=== PATIENT | female | born 1975 | race Two or more races ===

== ENCOUNTER 2020-05-09 09:34 | Outpatient (REF) | payer OTHER, SELFPAY | END 2020-05-09 09:35 | disposition home or self-care (01) | LOC: HO.LAB 09:34 | PROVIDERS: Visit Provider Internal Medicine | DX: Z20.828 Contact with and (suspected) exposure to other viral communicable diseases (principal) | CPT/HCPCS: C9803; U0003 ==

== ENCOUNTER 2021-07-06 08:44 | Outpatient (REF) | payer OTHER, SELFPAY | END 2021-07-06 08:45 | disposition home or self-care (01) | LOC: HO.HMGCLDS 08:44 | PROVIDERS: Visit Provider Internal Medicine | DX: Z20.822 Contact with and (suspected) exposure to COVID-19 (principal) | CPT/HCPCS: C9803; U0003; U0005 ==

== ENCOUNTER 2024-04-13 08:24 | Emergency (ER) | payer SELFPAY ==
--- NOTE | ~2024-04-13 | US_ITS ---
EXAMINATION: US BREAST, RIGHT LIMITED CLINICAL INFORMATION: Right breast swelling. History of implants placed in 2006. Details of the breast implant unknown. Prior breast imaging reportedly from 2019 is not available. COMPARISON: None available. TECHNIQUE: High-resolution curiel-scale sonography of right breast implant was performed by a technologist with a high frequency linear transducer following a standardized protocol. Brief comparison assessment of the left breast implant was also performed. Several static images and cine loop sequences were obtained and submitted for review FINDINGS: Several images of the right breast implant are submitted. The implant contour appears irregular and lobulated. Multiple low level internal echoes are seen within the implant, including large irregular band like areas of echogenicity in the 12:00 position of the implant extending to the 3 to 6:00 position. These findings are asymmetric to the contralateral left breast, which demonstrates smooth margins and no significant internal echoes. No specific periimplant fluid collections are noted. With color Doppler imaging, no hyperemia is demonstrated in the tissues surrounding the right breast implant. US/US breast RT limited IMPRESSION: 1. Abnormal appearance of the right breast implant with multiple areas of abnormal echogenicity, particularly in the 12:00 position of the right breast extending to the 3 to 6:00 position. Findings raise the suspicion of an intracapsular right breast rupture. Given the deformity of the breast implant, there is likely also an extracapsular component versus deformity related to capsular contracture. 2. No significant periimplant fluid collection appreciated. ASSESSMENT: ACR BI-RADS 3: Probably benign - short interval follow-up. RECOMMENDATIONS: 1. Close clinical correlation and follow-up is recommended. 2. Further assessment of the breast implants with breast MRI scan is recommended. 3. Also, there are no mammograms in our system and mammographic correlation is recommended. 4. Depending on the findings of the above-described additional imaging, short interval follow-up ultrasound may also be warranted. This result was discussed with Chiquis Li NP on 04/13/2024, 12:02 PM and it was ascertained that the content and urgency of this report was understood at the time of direct communication. Electronically signed by: Idania Cardenas MD 04/13/2024 12:14 PM EDT
[2024-04-13 08:28] VITALS: BP 154/81; PULSE 88; RESP 18; TEMP 37.2; O2SAT 98; BMI 26.7
--- NOTE | 2024-04-13 09:04 | ED.GENADULT ---
HPI - General Adult General Chief complaint: General Medical Stated complaint: lump in r breast pain Time Seen by Provider: 04/13/24 09:04 Source: patient Mode of arrival: ambulatory Limitations: no limitations History of Present Illness ED Provider: Guillermo SANCHEZ narrative: Patient is a 48-year-old female with history of breast implants placed in [facility] in 2005 presenting to the emergency department with complaint of right breast swelling and heaviness since yesterday. Denies tenderness of painfulness. Denies fevers. Denies any discharge from nipple. States she is in perimenopause, still gets regular periods, LMP was 03/21. Believes implants are silicone but is not entirely sure. complaint: breast swelling Onset (ago): day(s) Location: chest Associated symptoms: denies other symptoms Treatments prior to arrival: none Related Data Allergies Allergy/AdvReac Type Severity Reaction Status Date / Time Penicillins Allergy Rash Verified 04/13/24 08:32 Review of Systems Review of Systems: As per HPI. Yes all other systems are reviewed and are negative Constitutional: Constitutional: Reports as per HPI [facility] Social History Social History Advance Directives: No Advance Directives Information Provided: Yes Physical Exam ED Vital Signs: Vital Signs - 24 hr 04/13/24 08:28 04/13/24 11:08 Temperature 98.9 F 98.5 F Pulse Rate 88 67 Respiratory Rate 18 16 Blood Pressure 154/81 H 132/79 Pulse Oximetry 98 100 Oxygen Delivery Method Room Air Room Air BMI result Body Mass Index 26.7 Vital signs have been reviewed and appear to be correct. Blood pressure elevated. Heart rate normal. Respiratory rate normal. Temperature normal. Oxygen saturation normal. Const General: cooperative, healthy appearing and no acute distress Orientation/consciousness: oriented to person, oriented to place, oriented to time and patient oriented x3 Limitations: no limitations HENMT Head: Yes normocephalic and Yes atraumatic Ears: external ears normal General nose exam: Normal external nose present Face and sinus: Yes face symmetric Mouth: oropharynx normal and moist mucous membranes Throat: Yes uvula midline Eyes Pupils: Equal, round and reactive pupils present Neck Neck: Yes normal visual inspection and Yes supple Chest Other: Exam chaperoned by WHIT Nelson Breast/axilla inspection: normal inspection of the axillae and abnormal inspection of the breast right edema, normal nipple and normal areola; no erythema, no peau d'orange and no nipple discharge Breast/axilla palpation: normal palpation of the breasts, normal palpation of the axillae and no axillary lymphadenopathy Resp Effort & Inspection: normal respiratory effort and able to speak in complete sentences Auscultation: clear to auscultation bilaterally Cardio Rate: regular rate Rhythm: regular rhythm Heart sounds: S1 normal heart sound present and S2 normal heart sound present GI Palpation (GI): Soft to palpation and nontender Auscultation: normoactive bowel sounds General: Yes no CVA tenderness Back/Spine/Pelvis Back: no CVA tenderness Skin General skin exam: elasticity normal and turgor normal Neuro General: oriented to person, oriented to place, oriented to time, patient oriented x3, moves all extremities, no focal motor deficits and CN's II-XI intact bilaterally Cranial nerves: Yes Equal, round and reactive pupils present Cognition (Neuro): normal cognition Extrem General: Yes full ROM, Yes no pedal edema and Yes no calf tenderness Psych Mental Status: mental status grossly normal Affect: normal affect Thought process: Normal thought process present Medical Decision Making Medical Decision Making MDM Narrative: Patient is a 48-year-old female with history of breast implants placed in [facility] in 2005 presenting to the emergency department with complaint of right breast swelling and heaviness since yesterday. On exam patient is awake, A+Ox3, VS WNL, afebrile, normal neurological exam without focal deficits, physical exam findings as above. Given reported symptoms and physical exam findings, initial differential includes leaking or ruptured implant, less likely abscess. Ultrasound notable for abnormal appearance of right breast, implant with multiple areas of abnormal echogenicity suspicious for capsule rupture, also possible extracapsular deformity. My interpretation is in agreement with the radiologist's interpretation. Results discussed with patient. States she currently does not have a PCP, used to go to [place] but has not been there for several years. Case discussed with Dr. Crocker who states patient should follow up with [facility] [place]. Spoke with Dr. Sanya Abreu from [facility] [place] [facility] [place] who agrees that patient's implant likely needs to be removed. He advises sending referral to the office, have patient follow up outpatient. Plan discussed with patient who was in agreement. Return precautions discussed with patient including signs of infection. Patient verbalized understanding of and agreement with plan. Differential Diagnosis Differential Diagnoses: The differential diagnosis associated with the presentation includes As per MDM Consult Healthcare Provider Management of the patient was discussed with: Immigration Attorney (Dr. Crocker, general surgery; Dr. Sanya Abreu, [facility]) Independent Interpretation I performed an independent interpretation of an: Ultrasound Interpretation: Ultrasound notable for abnormal appearance of right breast, implant with multiple areas of abnormal echogenicity suspicious for capsule rupture, also possible extracapsular deformity. Radiology Impression Discussion of test interpretation with radiology: I have reviewed the radiologist's reading. Radiologist Impression: US/US breast RT limited IMPRESSION: 1. Abnormal appearance of the right breast implant with multiple areas of abnormal echogenicity, particularly in the 12:00 position of the right breast extending to the 3 to 6:00 position. Findings raise the suspicion of an intracapsular right breast rupture. Given the deformity of the breast implant, there is likely also an extracapsular component versus deformity related to capsular contracture. 2. No significant periimplant fluid collection appreciated. ASSESSMENT: ACR BI-RADS 3: Probably benign - short interval follow-up. RECOMMENDATIONS: 1. Close clinical correlation and follow-up is recommended. 2. Further assessment of the breast implants with breast MRI scan is recommended. 3. Also, there are no mammograms in our system and mammographic correlation is recommended. 4. Depending on the findings of the above-described additional imaging, short interval follow-up ultrasound may also be warranted. External Record Review External record reviewed: Inpatient record, Office record and Outpatient record Critical Care Time Critical Care Time Critical Care Time: Yes Total Critical Care Time: 42 Attestation: I have personally provided critical care time exclusive of time spent on separately billable procedures. Time includes review of lab data, radiology results, discussion with consultants, and monitoring for potential decompensation. Intervention performed as documented. Discharge Plan Discharge Clinical Impression: Swelling of breast Patient Disposition: Home, Self-Care Instructions: Breast Implant Removal (DC) Additional Instructions: You were evaluated in the emergency department today for breast swelling. Your ultrasound shows evidence that your implant possibly ruptured. It is recommended that you follow-up with the [facility] plastic surgery office as soon as possible for further evaluation and management. CALL THEIR OFFICE TO SCHEDULE AN APPOINTMENT, THEY WILL NOT CALL YOU. We recommend that you assess the area daily and return to the emergency department if you develop redness, additional swelling, fever or any other concerning symptoms. You were provided with resources for establishing care with a primary care provider in the emergency department today please attempt to do this as soon as possible. Referrals: Sanya Abreu MD [Physician] - 3 days ( US/US breast RT limited IMPRESSION: 1. Abnormal appearance of the right breast implant with multiple areas of abnormal echogenicity, particularly in the 12:00 position of the right breast extending to the 3 to 6:00 position. Findings raise the suspicion of an intracapsular right breast rupture. Given the deformity of the breast implant, there is likely also an extracapsular component versus deformity related to capsular contracture. 2. No significant periimplant fluid collection appreciated. ASSESSMENT: ACR BI-RADS 3: Probably benign - short interval follow-up. RECOMMENDATIONS: 1. Close clinical correlation and follow-up is recommended. 2. Further assessment of the breast implants with breast MRI scan is recommended. 3. Also, there are no mammograms in our system and mammographic correlation is recommended. 4. Depending on the findings of the above-described additional imaging, short interval follow-up ultrasound may also be warranted.) Print Language: Urdu
[2024-04-13 11:08] VITALS: BP 132/79; PULSE 67; RESP 16; TEMP 36.9; O2SAT 100
[2024-04-13 13:57] VITALS: BP 132/79; PULSE 67; RESP 16; TEMP 36.9; O2SAT 100
== END 2024-04-13 13:59 | disposition home or self-care (01) ==
PROVIDERS: Emergency Provider Emergency Medicine
DX: N63.10 Unspecified lump in the right breast, unspecified quadrant (principal); Z98.82 Breast implant status
CPT/HCPCS: 76642; 99283; 99284

== ENCOUNTER 2024-07-11 09:08 | Outpatient (AMB) | payer OTHER, SELFPAY ==
--- NOTE | 2024-07-11 09:10 | A.OFFPC_ITS ---
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: patient here for new patient visit Generator Technician Required: No Is last menstrual period known: Yes Last menstrual period: 06/24/24 Post menopausal: No Patient : No Allergies Penicillins Allergy (Verified 04/13/24 08:32) Rash Medication List - Last Reconciled 07/11/24 by Bin Otero MD No Known Home Meds Tobacco use date assessed: 07/11/24 Dental Screening Dental Screen Date: 07/11/24 Did you have a dental visit in the last 12 months?: Yes Did you have a dental problem in the last 6 months where you did not have access to dental care?: No Was dental information given to patient?: Patient has dentist 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 ?? Prior PCP:?Nita/Lisa Last office visit/CPE:? 4 yrs ago Acute issue(s):? Elevated BP Hematuria Headaches ?? PMHx:? R breast implant rupture. Headaches. SurgHx:?Implant replacement/repair FHx:? Mom: HLD, HTN, Migraines. Sister: Migraines. 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 Nonsmoker. EtOH None. 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 1. Little interest or pleasure in doing things: not at all 2. Feeling down, depressed, or hopeless: not at all 3. Trouble falling or staying asleep, or sleeping too much: not at all 4. Feeling tired or having little energy: not at all 5. Poor appetite or overeating: not at all 6. Feeling bad about yourself - or that you are a failure or have let yourself or your family down: not at all 7. Trouble concentrating on things, such as reading the newspaper or watching television: not at all 8. Moving or speaking so slowly that other people could have noticed. Or the opposite - being so fidgety or restless that you have been moving around a lot more than usual: not at all 9. Thoughts that you would be better off or of hurting yourself in some way: not at all Total score: 0 Depression Screening Interpretation: Negative Depression Screening Done: Yes Source: Developed by Drs. Grady Jewell, Kori Kurtz, Sanchez Carrillo and colleagues, with an educational naheed from [employer]. Thrive Questionnaire Date Thrive assessed: 07/11/24 I am a: Patient What is your living situation today?: I have a steady place to live Within the past 12 months, did the food you bought not last and you didn't have the money to get more?: Never true Within the past 12 months, did you worry whether your food would run out before you got money to buy more?: Never true Do you have trouble paying for medicines?: No Do you have trouble getting transportation to medical appointments?: No Do you have trouble paying your heating and electricity bill?: No Do you have trouble taking care of your child, family member or friend?: No Do you have trouble with day-to-day activities such as bathing, preparing meals, shopping, managing finances, etc.?: No Are you currently unemployed and looking for a job?: No Are you interested in more education?: No Please select the resources that you would like help with: None Currently or been in a relationship where the following occur: No concerns reported THRIVE Score: 0 AUDIT C Alcohol Use Questionnaire (AUDIT-C) 1. How often do you have a drink containing alcohol?: Never 2. How many drinks containing alcohol do you have on a typical day when you are drinking?: 1 or 2 3. How often do you have six or more drinks on one occasion?: Never Total Score: 0 Score Reviewed/Action Taken: Yes WENCESLAO-7 AMB Questionnaire WENCESLAO-7 Date WENCESLAO - 7 assessed: 07/11/24 Feeling nervous, anxious, or on edge: 0 = Not at all Not being able to stop or control worryin = Not at all Worrying too much about different things: 0 = Not at all Trouble relaxin = Not at all Being so restless that it is hard to sit still: 0 = Not at all Becoming easily annoyed or irritable: 0 = Not at all Feeling afraid as if something awful might happen: 0 = Not at all Total WENCESLAO-7 score (0-4 normal; 5-9 mild; 10-14 moderate; 15-21 severe): 0 Source: Developed by Drs. Grady Jewell, Kori Kurtz, Sanchez Carrillo and colleagues, with an educational naheed from [employer]. WENCESLAO-7 Assessment Billing WENCESLAO-7 Assessment Tool: WENCESLAO-7 Assessment 49982 Review of Systems Const Denies chills, Denies fatigue, Denies fever(s), Denies headache(s) and Denies weakness ENT Denies dizziness and Denies headache(s) Card Denies chest pain, Denies lightheadedness, Denies dyspnea and Denies other (Palpitations) Resp Denies cough, Denies dyspnea, Denies wheezing and Denies other ( shortness of breath) Musc Denies numbness and Denies tingling Neuro Denies dizziness, Denies headache(s), Denies numbness, Denies tingling, Denies paresthesias and Denies weakness Psych Denies anxiety and Denies depression Endo Denies fatigue Aller/Immun Denies wheezing Physical exam (Primary Care) Vital Signs: Last Vital Signs Temp 98.1 F 07/11/24 09:46 Pulse 76 07/11/24 09:46 Resp 16 07/11/24 09:46 BP 139/63 07/11/24 09:46 Pulse Ox 100 07/11/24 09:46 Oxygen Delivery Method Room Air 07/11/24 09:46 BMI result Body Mass Index 28.0 Tobacco/Smoking Status: Tobacco use Status Tobacco use date assessed 07/11/24 07/11/24 09:50 Patient Tobacco Use Status Never used Tobacco 07/11/24 09:50 e-Cigarette/Vaping Use Never Used 07/11/24 09:50 PHQ-9: PHQ-9 Score PHQ-9: Total score 0 07/11/24 09:50 Depression Screening Interpretation: Negative Thrive Assessment: Date of Thrive Assessment Date Thrive assessed 07/11/24 07/11/24 09:50 Currently or been in a relationship where the following occur: No concerns reported Const General: no acute distress and well developed Nutritional Appearance: well nourished Orientation/consciousness: patient oriented x3 HENMT Head: Yes normocephalic and Yes atraumatic Eyes General: appearance normal, both eyes and all related structures Pupils: Equal, round and reactive pupils present EOM: EOMs intact bilaterally Resp Effort & Inspection: normal respiratory effort Auscultation: clear to auscultation bilaterally Cardio Rate: regular rate Rhythm: regular rhythm Heart sounds: S1 normal heart sound present, S2 normal heart sound present, no gallops, no murmurs and no rubs Neuro General: patient oriented x3 and gait normal Cranial nerves: Yes Equal, round and reactive pupils present Psych Affect: normal affect Coding Level of Care Code New Pt Level 3 (29302) Diagnoses History of right breast implant Z98.82 Elevated blood pressure reading without diagnosis of hypertension R03.0 Hematuria R31.9 Headache R51.9 Laboratory exam ordered as part of routine general medical examination Z00.00 Additional Codes WENCESLAO-7 Assessment Billing - WENCESLAO-7 Assessment Tool: WENCESLAO-7 Assessment 24153 ([id number]) Assessment & Plan Assessment & Plan (1) History of right breast implant: Code(s): Z98.82 - Breast implant status Category: Surgical Plan: History?of?breast?implants?with?right?breast?implant?rupture?and?repair. Minimal?swelling?or?discomfort.??No?fevers?or?chills. 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 (2) Elevated blood pressure reading without diagnosis of hypertension: Code(s): R03.0 - Elevated blood-pressure reading, without diagnosis of hypertension Category: Medical Plan: Patient?notes?blood?pressures?have?been?elevated?recently. Blood?pressure?today?and?at?prior?measurement?are?in?prehypertensive?range. Advised?diet?low?in?salt/sodium Advised?exercise?and?good?sleep. (3) Hematuria: Code(s): R31.9 - Hematuria, unspecified Category: Medical Plan: Patient?notes?that?she?has?been?told?she?has?had?microscopic?hematuria No?gross?blood She?also?notes?that?her?mom?has?had?this?condition?as?well Will?check?urinalysis?we?can?discuss?further?workup?at?next?visit (4) Headache: Code(s): R51.9 - Headache, unspecified Category: Medical Plan: Patient?gets?occasional?headaches?and?use?Tylenol?which?is?effective. Can?continue?current?strategy (5) Laboratory exam ordered as part of routine general medical examination: Code(s): Z00.00 - Encounter for general adult medical examination without abnormal findings Category: Medical Plan: Check?labs Orders: Orders Lipid Panel Today Z00.00 - Encounter for general adult medical examination without abnormal findings Microalbumin, Random (w Creat) Today I10 - Essential (primary) hypertension TSH reflex Free T4 Today Z00.00 - Encounter for general adult medical examination without abnormal findings Complete Blood Count Auto Diff Today Z00.00 - Encounter for general adult medical examination without abnormal findings Comprehensive Gypsum. Panel Fast Today Z00.00 - Encounter for general adult medical examination without abnormal findings UA and rflx microscopic Today Z00.00 - Encounter for general adult medical examination without abnormal findings
[2024-07-11 09:46] VITALS: BP 139/63; PULSE 76; RESP 16; TEMP 36.7; O2SAT 100; BMI 28.0
== END 2024-07-11 10:17 | disposition home or self-care (01) ==
PROVIDERS: PCP Family Medicine; Visit Provider Family Medicine
DX: Z98.82 Breast implant status (principal); R03.0 Elevated blood-pressure reading, without diagnosis of hypertension; R31.9 Hematuria, unspecified; R51.9 Headache, unspecified; Z00.00 Encounter for general adult medical examination without abnormal findings

== ENCOUNTER → 2024-07-11 09:08 | Outpatient (BNVA) | payer OTHER, SELFPAY | PROVIDERS: Visit Provider Family Medicine | DX: Z00.00 Encounter for general adult medical examination without abnormal findings (principal); R51.9 Headache, unspecified; R31.9 Hematuria, unspecified; R03.0 Elevated blood-pressure reading, without diagnosis of hypertension; Z98.82 Breast implant status | CPT/HCPCS: 96127; 99202 ==

== ENCOUNTER → 2024-07-31 11:49 | Outpatient (BNVA) | payer OTHER, SELFPAY | PROVIDERS: PCP Family Medicine; Visit Provider Family Medicine | DX: Z00.00 Encounter for general adult medical examination without abnormal findings (principal); I10 Essential (primary) hypertension; R31.29 Other microscopic hematuria; Z12.4 Encounter for screening for malignant neoplasm of cervix | CPT/HCPCS: 99212; 99396 ==

== ENCOUNTER 2024-10-21 14:06 | Outpatient (REF) | payer OTHER, SELFPAY ==
[2024-10-21 16:07] LABS: Anion Gap 13 (12-20); Blood Urea Nitrogen 14 mg/dL (9-16); Carbon Dioxide 29 mmol/L (22-29); Chloride 102 mmol/L (96-108); Estimated Glomerular Filt Rate > 60; Glucose Random 84 mg/dL (60-115); Potassium 4.3 mmol/L (3.3-5.1); Sodium 140 mmol/L (135-145)
[2024-10-21 16:09] LABS: Appearance Urine Clear; Color Urine Yellow; Glucose Urine UA Negative (Negative); Leukocyte Esterase Urine Negative (Negative); Nitrite Urine Negative (Negative); Specific Gravity - Urine <= 1.005 (1.005-1.025); UMIC TRIGGER UA YES; Urine Blood Small (1+) (Negative); Urine Ketones Negative (Negative); Urine Protein Negative (Neg-Trace)
[2024-10-21 16:20] LABS: Bacteria Urine None Seen (None Seen); Hyaline Casts Urine 0-2 /LPF (0-2); Squamous Epithelial Cell Urine 0-2 /HPF (0-2); WBC Urine 0-5 /HPF (0-5)
[2024-10-21 16:41] LABS: Erythrocyte Sedimentation Rate 12 MM/HR (0-20)
[2024-10-21 17:37] LABS: Creatinine Urine 16.72 mg/dL; Microalbumin Urine < 5.0 mg/L
[2024-10-22 05:18] LABS: CRP High Sensitivity 0.7 mg/L
[2024-10-23 11:54] LABS: Anti Nuclear Antibody Screen NEGATIVE (NEGATIVE)
== END 2024-10-21 14:07 | disposition home or self-care (01) ==
LOC: HO.HMGCLDS 14:06
PROVIDERS: PCP Family Medicine; Visit Provider Family Medicine
DX: Z00.00 Encounter for general adult medical examination without abnormal findings (principal); R31.9 Hematuria, unspecified; I10 Essential (primary) hypertension
CPT/HCPCS: 36415; 80048; 81001; 82043; 82570; 85652; 86038; 86141

== ENCOUNTER 2024-10-22 08:50 | Outpatient (AMB) | payer OTHER, SELFPAY ==
--- NOTE | 2024-10-22 08:53 | MHC.PC.OV ---
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 Recent labs show inflammatory markers are fine. ELIEL screen still pending. Urine studies show some hematuria which has improved from prior. Has complaints of muscle cramps. Complaints of back pain. She takes ibuprofen for relief when pain gets unbearable. 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 HPI Comments History of Present Illness Details Documentation assistance for Bin Otero MD, was provided by Sunday Harris,? Torch Operator on 10/22/2024 at 9:31 AM EST. I, Dr. Otero, have read, observed, and verified documentation. ? 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 Current occupational exposures/hazards: No Cognitive needs: No Hearing needs: No Vision needs: No Questionnaire Thrive Questionnaire Date Thrive assessed: 07/08/24 I am a: Patient What is your living situation today?: I have a steady place to live Within the past 12 months, did the food you bought not last and you didn't have the money to get more?: Never true Within the past 12 months, did you worry whether your food would run out before you got money to buy more?: Never true Do you have trouble paying for medicines?: No Do you have trouble getting transportation to medical appointments?: No Do you have trouble paying your heating and electricity bill?: No Do you have trouble taking care of your child, family member or friend?: No Do you have trouble with day-to-day activities such as bathing, preparing meals, shopping, managing finances, etc.?: No Are you currently unemployed and looking for a job?: No Are you interested in more education?: No Please select the resources that you would like help with: None Currently or been in a relationship where the following occur: No concerns reported THRIVE Score: 0 WENCESLAO-7 AMB Questionnaire WENCESLAO-7 Date WENCESLAO - 7 assessed: 07/11/24 Source: Developed by Drs. Grady Jewell, Kori Kurtz, Sanchez Carrillo and colleagues, with an educational naheed from [employer]. Review of Systems Const Denies chills, Denies fatigue, Denies fever(s), Denies headache(s) and Denies weakness ENT Denies dizziness and Denies headache(s) Card Denies dyspnea Resp Denies cough, Denies dyspnea, Denies wheezing and Denies other (shortness of breath) Musc Reports back pain, Denies numbness and Denies tingling Neuro Denies dizziness, Denies headache(s), Denies numbness, Denies tingling and Denies weakness Psych Denies anxiety and Denies depression Endo Denies fatigue Aller/Immun Denies wheezing Physical exam (Primary Care) Vital Signs: Last Vital Signs Temp 98.2 F 10/22/24 09:02 Pulse 77 10/22/24 09:02 Resp 14 10/22/24 09:02 BP 110/70 10/22/24 09:02 Pulse Ox 99 10/22/24 09:02 Oxygen Delivery Method Room Air 10/22/24 09:02 BMI result Body Mass Index 28.5 Tobacco/Smoking Status: Tobacco use Status Tobacco use date assessed 07/11/24 10/22/24 08:55 Patient Tobacco Use Status Never used Tobacco 10/22/24 08:55 e-Cigarette/Vaping Use Never Used 10/22/24 08:55 Thrive Assessment: Date of Thrive Assessment Date Thrive assessed 07/08/24 10/22/24 08:55 Currently or been in a relationship where the following occur: No concerns reported Const General: well developed; No acute distress Nutritional Appearance: well nourished Orientation/consciousness: patient oriented x3 HENMT Head: Yes normocephalic and Yes atraumatic Eyes General: appearance normal, both eyes and all related structures Pupils: Equal, round and reactive pupils present EOM: EOMs intact bilaterally Resp Effort & Inspection: normal respiratory effort Neuro General: patient oriented x3 and gait normal Cranial nerves: Yes Equal, round and reactive pupils present Psych Affect: normal affect Coding Level of Care Code Est Pt Level 4 (38977) Diagnoses Back pain M54.9 Hematuria R31.9 Muscle cramps R25.2 Assessment & Plan Assessment & Plan (1) Back pain: Code(s): M54.9 - Dorsalgia, unspecified Category: Medical Plan: Mid?and?low?back?pain?in?patient?who?drives?for?a?living. Surface?therapy Use?Tylenol?topicals (2) Hematuria: Code(s): R31.9 - Hematuria, unspecified Category: Medical Plan: Ongoing?hematuria Renal?function?appears?okay Possible?renal?stones. Possible?polyps?or neoplasm less likely. Will?repeat and check?urine?microscopy,?cytology. May refer to urology (3) Muscle cramps: Code(s): R25.2 - Cramp and spasm Category: Medical Plan: Encouraged?good?hydration,?gentle?stretching?and?she?magnesium?at?night Orders: Orders Urine Cytology 10/22/24 R31.9 - Hematuria, unspecified UA w Microscopic 10/22/24 R31.9 - Hematuria, unspecified PT Evaluation and Treatment 10/22/24 M54.9 - Dorsalgia, unspecified Referrals Urology Referral R31.9 - Hematuria, unspecified
[2024-10-22 09:02] VITALS: BP 110/70; PULSE 77; RESP 14; TEMP 36.8; O2SAT 99; BMI 28.5
== END 2024-10-22 09:32 | disposition home or self-care (01) ==
LOC: HO.HMCFM 08:51
PROVIDERS: PCP Family Medicine; Visit Provider Family Medicine
DX: M54.9 Dorsalgia, unspecified (principal); R31.9 Hematuria, unspecified; R25.2 Cramp and spasm

== ENCOUNTER → 2024-10-22 08:50 | Outpatient (BNVA) | payer OTHER, SELFPAY | PROVIDERS: PCP Family Medicine; Visit Provider Family Medicine | DX: Z13.89 Encounter for screening for other disorder (principal) | CPT/HCPCS: 99212 ==

== ENCOUNTER 2024-10-22 09:43 | Outpatient (REF) | payer OTHER, SELFPAY ==
[2024-10-22 11:18] LABS: Urine Cytology See Pathology rpt
[2024-10-22 11:36] LABS: Appearance Urine Clear; Color Urine Yellow; Glucose Urine UA Negative (Negative); Leukocyte Esterase Urine Negative (Negative); Nitrite Urine Negative (Negative); UMIC TRIGGER UA YES; Urine Blood Small (1+) (Negative); Urine Ketones Negative (Negative); Urine Protein Negative (Neg-Trace)
[2024-10-22 11:40] LABS: Bacteria Urine None Seen (None Seen); Hyaline Casts Urine 0-2 /LPF (0-2); RBC Urine >20 /HPF (0-2); Squamous Epithelial Cell Urine 0-2 /HPF (0-2); WBC Urine 0-5 /HPF (0-5)
== END 2024-10-22 09:44 | disposition home or self-care (01) ==
LOC: HO.WFDLDS 09:43
PROVIDERS: Visit Provider Family Medicine
DX: R31.9 Hematuria, unspecified (principal)
CPT/HCPCS: 81001; 88112

== ENCOUNTER 2024-11-07 10:44 | Outpatient (REF) | payer OTHER, SELFPAY ==
[2024-11-07 18:16] LABS: Bacterial Vaginosis PCR NEGATIVE (Negative); Candida Group PCR NOT DETECTED (Not Detect); Candida glab krusei PCR NOT DETECTED (Not Detect); Trichomonas vaginalis PCR NOT DETECTED (Not Detect)
[2024-11-08 13:25] LABS: CT PCR NOT DETECTED (Not Detect.); NG PCR NOT DETECTED (Not Detect.)
[2024-11-13 12:01] LABS: HPV Genotype 16 Negative (Negative); HPV Genotype 18 Negative (Negative); HPV High Risk Negative (Negative)
== END 2024-11-07 10:45 | disposition home or self-care (01) ==
LOC: HO.LNP 10:44
PROVIDERS: PCP Family Medicine; Visit Provider Advanced Practice Midwife
DX: Z01.419 Encounter for gynecological examination (general) (routine) without abnormal findings (principal); N95.1 Menopausal and female climacteric states; Z11.3 Encounter for screening for infections with a predominantly sexual mode of transmission; Z98.82 Breast implant status; Z98.51 Tubal ligation status
CPT/HCPCS: 81515; 87491; 87591; 87626; 88175; 99386; 99459

== ENCOUNTER 2024-11-07 10:44 | Outpatient (AMB) | payer OTHER, SELFPAY ==
[2024-11-07 10:45] VITALS: BP 112/68; PULSE 72; O2SAT 98; BMI 28.3
--- NOTE | 2024-11-07 10:45 | A.OFFVIS_ITS ---
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 She says she is in good health since then. 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 She has been getting hot flashes for while she is 49 years old. She is seeing Dr. Otero now for primary care. She had breast implants and abdominal plasty done in 1999 6 in [place] and last year she felt her right breast rupture and was getting more swollen and sore and so she returned to [place] for revision placement the surgery was done in April she also was found to be anemic when she went there so she needed an iron transfusion 1st before surgery and then also she needed to return for surgery because there were deposits where the silicone had leaked. She had an appointment for mammogram recently but she asked them not to do the mammogram because of her recent surgery in being still little sore after so they did an ultrasound she is not sure when her mammogram will be done at this point. 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 Current occupational exposures/hazards: No Cognitive needs: No Hearing needs: No Vision needs: No Female Reproductive History Menstrual Age of Menarche: 11 Duration of menses: <3 days Date of last menstrual period: 10/25/24 control method: permanent sterilization Total pregnancies: 3 Number of Living Children: 2 Ectopics: 1 History of abnormal pap smear: No History of STI: Yes (chlamydia 1991) Physical Exam Vital Signs: Last Vital Signs Pulse 72 11/07/24 10:45 BP 112/68 11/07/24 10:45 Pulse Ox 98 11/07/24 10:45 Oxygen Delivery Method Room Air 11/07/24 10:45 BMI result Body Mass Index 28.3 Const General: healthy appearing, comfortable, no acute distress, well developed and alert Nutritional Appearance: average body habitus Orientation/consciousness: patient oriented x3 Limitations: no limitations HEENT Head: Yes normocephalic Neck Neck: Yes normal visual inspection Chest Other: Patient is status post revision of breast implants with scars evident and healing from April. (also history of abdominal plasty 2005) Chest palpation & inspection: normal inspection of the chest Breast/axilla inspection: normal inspection of the breasts and normal inspection of the axillae Breast/axilla palpation: normal palpation of the breasts and normal palpation of the axillae Resp Effort & Inspection: normal respiratory effort GI Inspection: Yes normal to inspection, No Abdominal wall edema and No distended Palpation (GI): Soft to palpation and nontender Other: Normal external exam some thinning of the vaginal mucosa vagina pink and moist cervix pink and moist healthy appearing scant mucus uterus midposition mobile nontender adnexa nontender fair muscle tone with Kegel. General: Yes bladder normal to palpation External Female Exam: normal external appearance and normal appearance of the urethra Speculum Exam - Vagina: normal appearance of the vagina, normal palpation and normal vaginal discharge Speculum Exam - Cervix: normal appearance of the cervix, normal palpation and nontender Bimanual exam- vagina & uterus: normal bimanual exam, normal palpation, uterine size normal, bladder normal to palpation, consistency normal, normal palpation, uterine mobility normal, uterine shape normal, No Cervical tenderness present, non-tender and no cervical motion tenderness Bimanual Exam- Adnexa, other: normal adnexae, no masses, normal and No adnexal tenderness Neuro General: patient oriented x3 Assessment & Plan Assessment & Plan (1) Hx of breast implants, bilateral: Comment: Traveled to [place] for revision of the breast implants secondary to be right 1 had ruptured. She said there was some leaking of the silicone. I asked that she bring the medical records/operative to her primary care provider for review. Code(s): Z98.82 - Breast implant status Category: Surgical (2) Screening for cervical cancer: Code(s): Z12.4 - Encounter for screening for malignant neoplasm of cervix Category: Medical (3) Well woman exam with routine gynecological exam: Code(s): Z01.419 - Encounter for gynecological examination (general) (routine) without abnormal findings Category: Medical (4) Perimenopause: Code(s): N95.1 - Menopausal and female climacteric states Category: Medical (5) Encounter for screening examination for sexually transmitted disease: Code(s): Z11.3 - Encounter for screening for infections with a predominantly sexual mode of transmission Category: Medical Plan -----Discussed in this visit the following: healthy balanced diet, regular and consistent exercise, getting recommended health screens, doing the best she can for her particular health concerns, kegel exercises, pap smear screening and followup recommendations, mammography screening and SBE, normal changes in cycles in her life stage--- . Reviewed her recent history of the the breast surgery breast implant revision. She told me that she does have the records of the surgery and I ask that she bring them to her next primary care visits so they can be put in her records just in case there is any issue with future concerns about the leaking of the silicone that she had additionally she still needs to schedule a mammogram and the timing would be for discussion with her primary. She does not have any other health concerns I did discuss other raheem menopausal symptoms that she is not experiencing yet but discussed in anticipation of future. Testing done during visit for the Pap smear as well as gonorrhea chlamydia trichomoniasis bacterial vaginosis and yeast. She reminded me of how upset she had been when she had chlamydia in the 90s, she is not concerned today, and d eclined blood work for STIs. Orders: Orders Bacterial Vaginosis Panel Today Z00.00 - Encounter for general adult medical examination without abnormal findings CT NG by PCR Today Z00.00 - Encounter for general adult medical examination without abnormal findings Pap Smear Today Z00.00 - Encounter for general adult medical examination without abnormal findings Coding Level of Care Code New Pt Prev Care 40-64y(22064) Diagnoses Hx of breast implants, bilateral Z98.82 Screening for cervical cancer Z12.4 Well woman exam with routine gynecological exam Z01.419 Perimenopause N95.1 Encounter for screening examination for sexually transmitted disease Z11.3
== END 2024-11-07 11:46 | disposition home or self-care (01) ==
LOC: HO.HWSM 10:44
PROVIDERS: PCP Family Medicine; Visit Provider Advanced Practice Midwife
DX: Z01.419 Encounter for gynecological examination (general) (routine) without abnormal findings (principal); N95.1 Menopausal and female climacteric states; Z98.82 Breast implant status
CPT/HCPCS: 99386; 99459

== ENCOUNTER 2024-12-23 09:37 | Outpatient (AMB) | payer OTHER, SELFPAY ==
--- NOTE | 2024-12-23 09:50 | MHC.PC.OV ---
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 Mid and low back pain. 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 Pt had ongoing hematuria. Had referred her to urology. She notes she has an upcoming appt. Has been going to physical therapy. She had noted pain has been the same. Does not take any meds for pain. HPI Comments History of Present Illness Details Documentation assistance for Bin Otero MD, was provided by Sunday Harris,? Title I Math Tutor on 12/23/2024 at 9:57 AM EST. I, Dr. Otero, have read, observed, and verified documentation. ? PFSH Medical History Laboratory exam ordered as part of routine general medical examination Adult general medical exam Screening for colon cancer Breast cancer screening by mammogram Screening for cervical cancer Well woman exam with routine gynecological exam Encounter for screening examination for sexually transmitted disease Anxiety STD (female) Asthma Surgical History History of right breast implant Hx of breast implants, bilateral H/O tubal ligation History of abdominoplasty Family History Mother High blood pressure High cholesterol Social History Housing: House Patient Tobacco Use Status: Never used Tobacco e-Cigarette/Vaping Use: Never Used Second Hand Smoke Exposure: No service: No Current occupational status: employed 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 Current occupational exposures/hazards: No Cognitive needs: No Hearing needs: No Vision needs: No Female Reproductive History Menstrual Age of Menarche: 11 Questionnaire Thrive Questionnaire Date Thrive assessed: 07/08/24 I am a: Patient What is your living situation today?: I have a steady place to live Within the past 12 months, did the food you bought not last and you didn't have the money to get more?: Never true Within the past 12 months, did you worry whether your food would run out before you got money to buy more?: Never true Do you have trouble paying for medicines?: No Do you have trouble getting transportation to medical appointments?: No Do you have trouble paying your heating and electricity bill?: No Do you have trouble taking care of your child, family member or friend?: No Do you have trouble with day-to-day activities such as bathing, preparing meals, shopping, managing finances, etc.?: No Are you currently unemployed and looking for a job?: No Are you interested in more education?: No Please select the resources that you would like help with: None Currently or been in a relationship where the following occur: No concerns reported THRIVE Score: 0 WENCESLAO-7 AMB Questionnaire WENCESLAO-7 Date WENCESLAO - 7 assessed: 07/11/24 Source: Developed by Drs. Grady Jewell, Kori Kurtz, Sanchez Carrillo and colleagues, with an educational naheed from [employer]. Review of Systems Const Denies chills, Denies fatigue, Denies fever(s), Denies headache(s) and Denies weakness ENT Denies dizziness and Denies headache(s) Card Denies dyspnea Resp Denies cough, Denies dyspnea, Denies wheezing and Denies other (shortness of breath) Musc Denies numbness and Denies tingling Neuro Denies dizziness, Denies headache(s), Denies numbness, Denies tingling and Denies weakness Psych Denies anxiety and Denies depression Endo Denies fatigue Aller/Immun Denies wheezing Physical exam (Primary Care) Vital Signs: Last Vital Signs Temp 97.9 F 12/23/24 09:52 Pulse 61 12/23/24 09:52 Resp 14 12/23/24 09:52 BP 124/70 12/23/24 09:52 Pulse Ox 99 12/23/24 09:52 Oxygen Delivery Method Room Air 12/23/24 09:52 BMI result Body Mass Index 27.5 Tobacco/Smoking Status: Tobacco use Status Tobacco use date assessed 07/11/24 12/23/24 09:55 Patient Tobacco Use Status Never used Tobacco 12/23/24 09:55 e-Cigarette/Vaping Use Never Used 12/23/24 09:55 Thrive Assessment: Date of Thrive Assessment Date Thrive assessed 07/08/24 12/23/24 09:55 Currently or been in a relationship where the following occur: No concerns reported Const General: well developed; No acute distress Nutritional Appearance: well nourished Orientation/consciousness: patient oriented x3 HENMT Head: Yes normocephalic and Yes atraumatic Eyes General: appearance normal, both eyes and all related structures Pupils: Equal, round and reactive pupils present EOM: EOMs intact bilaterally Resp Effort & Inspection: normal respiratory effort Neuro General: patient oriented x3 and gait normal Cranial nerves: Yes Equal, round and reactive pupils present Psych Affect: normal affect Coding Level of Care Code Est Pt Level 4 (48648) Diagnoses Back pain M54.9 Hematuria R31.9 Muscle cramps R25.2 Assessment & Plan Assessment & Plan (1) Back pain: Code(s): M54.9 - Dorsalgia, unspecified Category: Medical Plan: Ongoing?low?back?pain?radiating?to?buttocks?and?leg She?has?undergone?physical?therapy?and?still?has?additional?visits?but?has?not?had?significant?improvement She?can?use?ibuprofen?sparingly I?will?refer?her?to?physiatry Checking?x-ray (2) Hematuria: Code(s): R31.9 - Hematuria, unspecified Category: Medical Plan: Ongoing?hematuria Cytology?unremarkable Referred?to?urology (3) Muscle cramps: Code(s): R25.2 - Cramp and spasm Category: Medical Plan: Muscle?cramps?have?resolved.??Had?advised?patient?to?increase?hydration?and?try?magnesium She?will?me?know?if?this?returns Orders: Orders XR lumbar spine 2-3V 12/23/24 M54.9 - Dorsalgia, unspecified Referrals Physiatry Referral M54.9 - Dorsalgia, unspecified
[2024-12-23 09:52] VITALS: BP 124/70; PULSE 61; RESP 14; TEMP 36.6; O2SAT 99; BMI 27.5
== END 2024-12-23 10:15 | disposition home or self-care (01) ==
LOC: HO.HMCFM 09:38
PROVIDERS: PCP Family Medicine; Visit Provider Family Medicine
DX: M54.9 Dorsalgia, unspecified (principal); R31.9 Hematuria, unspecified; R25.2 Cramp and spasm

== ENCOUNTER 2024-12-23 09:37 | Outpatient (REF) | payer OTHER, SELFPAY ==
--- NOTE | ~2024-12-23 | XR_ITS ---
EXAMINATION: XR LUMBOSACRAL SPINE CLINICAL INFORMATION: M54.9 - Dorsalgia, unspecified COMPARISON: None available. TECHNIQUE: AP and lateral views. FINDINGS: Levoconvex curvature of the lower lumbar spine. Facet joint hypertrophy at L4-5 and L5-S1. No acute cortical disruption or gross malalignment. No lytic or blastic lesions. XR/XR lumbar spine 2-3V IMPRESSION: Spondylosis L4-5 and L5-S1. Mild levoconvex scoliosis. Electronically signed by: Roc Montana MD 12/23/2024 01:00 PM EDT
== END 2024-12-23 09:38 | disposition home or self-care (01) ==
LOC: HO.XRAY 09:37
PROVIDERS: PCP Family Medicine; Visit Provider Family Medicine
DX: M54.9 Dorsalgia, unspecified (principal); R31.9 Hematuria, unspecified; R25.2 Cramp and spasm
CPT/HCPCS: 72100; 99212

== ENCOUNTER → 2024-12-23 10:48 | Outpatient (BNV) | payer OTHER, SELFPAY | PROVIDERS: PCP Family Medicine; Visit Provider Radiology Diagnostic Radiology | DX: M47.817 Spondylosis without myelopathy or radiculopathy, lumbosacral region (principal) | CPT/HCPCS: 72100 ==

== ENCOUNTER 2024-12-24 08:56 | Outpatient (AMB) | payer OTHER, SELFPAY ==
[2024-12-24 09:00] VITALS: BP 124/78; PULSE 72; O2SAT 96; BMI 27.5
--- NOTE | 2024-12-24 09:00 | A.OFFVIS_ITS ---
Vital Signs 3 12/24/24 09:00 Height 5 ft 5 in Weight 165 lb BMI 27.5 BP 124/78 Blood Pressure Location Rt brachial Position Sitting Pulse 72 Pulse Source Pulse Oximeter Pulse Oximetry (%) 96 Oxygen Delivery Method Room Air Intake Visit Reasons: Colonoscopy Screening Intake Note: New pt for initial colo screening. CC; Pt denies any GI sx or concerns at this time. No pertinent FMHx. Mercerizing Range Feeder Required: No Accompanied by: Self / Same As Patient Allergies Penicillins Allergy (Verified 12/24/24 09:01) Rash HPI HPI Colonoscopy Screening: Details: 49-year-old female here for preprocedural meeting to discuss a screening colonoscopy. She is referred by Bin Otero. PMX Asthma Elevated blood pressure reading Headache Back pain * SURGICAL HISTORY BREAST IMPLANTS BILATERAL TUBAL LIGATION ABDOMINOPLASTY * ALLERGIES Penicillin * [place] LABS: Laboratory Tests 07/20/24 10/21/24 08:24 14:11 WBC 3.7 L Hgb 12.3 Hct 37.5 Plt Count 261 Estimated GFR > 60 Total Bilirubin 0.5 AST 20 ALT 19 Alkaline Phosphatase 62 TSH 0.85 TODAY'S VISIT This is her first colonoscopy. No bowel or upper GI problems No cardiac problems and she only had asthma when . No prior problems with anesthesia or sedation. NO ID problems. There is no known FHX of crc or polyps. [facility] Medical History Laboratory exam ordered as part of routine general medical examination Adult general medical exam Screening for colon cancer Breast cancer screening by mammogram Screening for cervical cancer Well woman exam with routine gynecological exam Encounter for screening examination for sexually transmitted disease Anxiety STD (female) Asthma Surgical History History of right breast implant Hx of breast implants, bilateral H/O tubal ligation History of abdominoplasty Family History Mother High blood pressure High cholesterol Social History Housing: House Patient Tobacco Use Status: Never used Tobacco e-Cigarette/Vaping Use: Never Used Second Hand Smoke Exposure: No service: No Current occupational status: employed 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 Current occupational exposures/hazards: No Cognitive needs: No Hearing needs: No Vision needs: No Female Reproductive History Menstrual Age of Menarche: 11 Review of Systems Const Denies fatigue, Denies fever(s), Denies night sweats, Denies poor appetite and Denies weight loss Eyes Reports requires corrective lenses ENT Reports Normal hearing present, Denies dental pain, Denies dysphagia, Denies hearing loss, Denies mouth pain, Denies odynophagia, Denies throat swelling, Denies tongue swelling and Reports other (Dentition adequate) GI Details: Denies abdominal pain, Denies melena, Denies bloating, Denies hematochezia, Denies constipation, Denies GI cramping, Denies dysphagia, Denies excessive flatus, Denies early satiety, Denies heartburn, Denies diarrhea, Denies nausea, Denies odynophagia, Denies vomiting and Denies hematemesis Skin/Breast Denies pruritus, Denies lesions, Denies rash and Denies jaundice Neuro Reports Normal hearing present and Denies Abnormal speech present Endo Denies fatigue Aller/Immun Denies throat swelling and Denies tongue swelling Physical Exam Vital Signs: BMI result Body Mass Index 27.5 Const General: cooperative, no acute distress, well developed and well groomed Nutritional Appearance: well nourished, obese and overweight Orientation/consciousness: oriented to person, oriented to place and oriented to time Limitations: No language barrier, ambulation with cane, ambulation with walker and wheelchair HEENT Head: Yes normocephalic and Yes atraumatic Eyes General: appearance normal, both eyes and all related structures Pupils: Equal, round and reactive pupils present Neck Neck: Yes normal visual inspection and Yes no lymphadenopathy Thyroid: Thyroid normal Resp Effort & Inspection: normal respiratory effort and able to speak in complete sentences Auscultation: clear to auscultation bilaterally Cardio Rate: regular rate Rhythm: regular rhythm Heart sounds: Normal, physiologic split S2 sound present Peripheral pulses: radial pulses present and posterior tibial pulses present GI Inspection: No distended, No Abdominal panniculus present, Yes scar and Yes striae Palpation (GI): Soft to palpation, nontender, no guarding, not rigid and No hepatosplenomegaly present Percussion: Yes normal to percussion Auscultation: normal bowel sounds Rectal Exam - Female: deferred Abdomen image: 2 1. Surgical scars 2. Skin General skin exam: no rashes or lesions noted, turgor normal, skin not dry, no jaundice, No spider nevi and no striae Rashes: no rashes Nails: normal Neuro General: oriented to person, oriented to place and oriented to time Cranial nerves: Yes Equal, round and reactive pupils present and Yes Normal hearing present Speech: No Abnormal speech present Extrem General: Yes normal to inspection, No clubbing, No cyanosis and No edema Psych Thought process: Normal thought process present and not confabulating Thought content: Normal thought content present Insight: Good insight present (Psych) Judgement: Good judgement present (Psych) Assessment & Plan Assessment & Plan (1) Pre-op examination: Code(s): Z01.818 - Encounter for other preprocedural examination Category: Medical Plan This is her first colonoscopy. No bowel or upper GI problems No cardiac problems and she only had asthma when . No prior problems with anesthesia or sedation. NO ID problems. There is no known FHX of crc or polyps Orders: Orders 2 Colonoscopy - GI Use Only Today Z01.818 - Encounter for other preprocedural examination Medications: New 2 sodium,potassium,mag sulfates 17.5-3.13-1.6 gram (Suprep Bowel Prep Kit) 480 mL orally; FOR COLONOSCOPY PREP 354 mL 0RF Coding Level of Care Code New Pt Level 3 (72323) Diagnoses Pre-op examination Z01.818
== END 2024-12-24 09:37 | disposition home or self-care (01) ==
PROVIDERS: PCP Family Medicine; Visit Provider Nurse Practitioner
DX: Z01.818 Encounter for other preprocedural examination (principal); Z12.11 Encounter for screening for malignant neoplasm of colon
CPT/HCPCS: 99203

== ENCOUNTER → 2024-12-24 08:56 | Outpatient (BNVA) | payer OTHER, SELFPAY | PROVIDERS: PCP Family Medicine; Visit Provider Nurse Practitioner | DX: Z01.818 Encounter for other preprocedural examination (principal) | CPT/HCPCS: 99202 ==

== ENCOUNTER 2025-01-01 11:00 | Outpatient (RCR) | payer OTHER, SELFPAY ==
--- NOTE | 2024-11-27 11:49 | MHC.PT.EP ---
[facility] [place] Office [place] Office [place] Office [address] Alan Mackey [address] [phone] F: [phone] F: [phone] F: [phone] F: [phone] Physical Therapy Plan of Care Date of Evaluation: 11/27/24 Date of Surgery: Diagnosis: This is a 49 yo female presenting to skilled PT with a script for low back pain. Assessment: This is a 49 yo female presenting to skilled PT with a script for low back pain. Pain has been ongoing for over a year with insidious onset. Pain is located on the L side low back. Pain is described as achy and comes and goes. Pain increases with bending forward, sleeping in general and with driving. Pain improves with warming up. She uses Tylenol and car seat warmers for pain relief. She has not had x-rays and no other conservative interventions. Assessment reveals pain that ranges from up to a 8/10 at the worst. Patient demos decreased lumbar ROM, strength of core, back and B LE's, TTP at and impaired posture with forward head and rounded shoulders. Based on functional limitations, impaired QOL and pain tolerance patient is a good candidate for skilled PT 2x/wk for 4wks. Frequency and Duration: The patient will be seen 2x/wk for 4wks Short Term Goals: Pt will demonstrate improved postural awareness and understanding of core engagement with supine and standing tasks without cues throughout session to improve overall back safety in 2 weeks. Pt will demonstrate centralization of sx in 2 weeks. Pt will continue to reinforce precautions, sitting, standing and ADL modifications with proper body mechanics in 2 wks. Purse Framer Goals: Pt will demonstrate improved outcome measure by 5 points in 4 weeks for improved functional mobility. Pt will demonstrate ability to bend and lift WNL min to no pain for household tasks in 4 wks. Pt will be I in HEP and compliant in 4wks Treatment Plan: Modalities to reduce pain, spasms and effusion. Manual therapy to restore motion and function. Therapeutic exercise to improve strength and flexibility. Neuromuscular re-education for posture and balance. Therapeutic activities to return to functional activities of daily living. Electronically signed by: Dodie Pickett, PT Please sign and return to therapist. Thank you for your referral.
--- NOTE | 2025-01-29 07:01 | MHC.PT.DC ---
[facility] [place] Office [place] Office [place] Office [address] Alan Mackey [address] [phone] F: [phone] F: [phone] F: [phone] F: [phone] Physical Therapy Discharge Report Diagnosis: This is a 49 yo female presenting to skilled PT with a script for low back pain. Date of Surgery: Date of Evaluation: 11/27/24 Date of Discharge: 01/29/25 Treatments to Date: 6 Cancellations to Date: 0 No Shows to Date: 0 Discharge Status: Independent with HEP Patient Elected to Stop Recommend MD Follow-up Discharge Summary: Patient has come to 6 weeks of therapy. She has not improved much in terms of pain management. At this time I educated her on continuing her HEP on her own at this time and following up with her physiatry appointment in April for further POC. Patient with good HEP to continue on her own at this time. DC to HEP. Electronically signed by: Dodie Pickett PT Please sign and return to therapist. Thank you for your referral.
== END 2025-01-29 07:01 | disposition home or self-care (01) ==
LOC: HO.PTCHIC 11:00
PROVIDERS: PCP Family Medicine; Visit Provider Family Medicine
DX: M54.9 Dorsalgia, unspecified (principal)
CPT/HCPCS: 97110; 97140; 97162

== ENCOUNTER 2025-01-06 10:54 | Outpatient (AMB) | payer OTHER, SELFPAY ==
--- NOTE | 2025-01-06 11:03 | A.OFFVIS_ITS ---
Intake Visit Reasons: microscopic hematuria Intake Note: New Patient presents for initial visit for microscopic hematuria Urology Medications: none Blood Thinner: none Smoker: never V Belt Builder Required: No Accompanied by: Self / Same As Patient Allergies Penicillins Allergy (Verified 01/06/25 11:48) Rash Medication List - Last Reconciled 01/06/25 by BC Arndt sodium,potassium,mag sulfates 17.5-3.13-1.6 gram (Suprep Bowel Prep Kit) 480 mL orally; FOR COLONOSCOPY PREP HPI Comments Details: Violet is a pleasant 49-year-old female patient of Dr. Otero. She has a past medical history of anxiety, and asthma. She presents to the office today as a new patient for microscopic hematuria. In discussion with the patient today she reports a longstanding history of microscopic hematuria. 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 When asked she denies any previous history of nicotine dependence and or workplace chemical exposure. In office urinalysis results reviewed with the patient today 3+ microscopic hematuria otherwise within normal limits. She otherwise denies any bothersome urinary issues. She denies urinary urgency, urinary frequency, incontinence, nocturia, gross/visible hematuria, dysuria, foul smelling urine, changes to urinary stream, flank pain, fever, and or chills. She is happy with her current voiding parameters. We discussed at length potential causes of microscopic hematuria as well as further workup in risks and benefits of these interventions. We also discussed surveillance monitoring. I discussed reasons for blood in the urine may include but are not limited to kidney stones, cancer in the urinary tract, kidney stone disease or inflammatory conditions of the urinary tract. I have discussed workup to include cystoscopy evaluation. All questions were answered. She otherwise offers no other issues or concerns at this time. ON LICENSE OF [facility] Medical History Laboratory exam ordered as part of routine general medical examination Adult general medical exam Screening for colon cancer Breast cancer screening by mammogram Screening for cervical cancer Well woman exam with routine gynecological exam Encounter for screening examination for sexually transmitted disease Anxiety STD (female) Asthma Surgical History History of right breast implant Hx of breast implants, bilateral H/O tubal ligation History of abdominoplasty Family History Mother High blood pressure High cholesterol Social History Housing: House Patient Tobacco Use Status: Never used Tobacco e-Cigarette/Vaping Use: Never Used Second Hand Smoke Exposure: No service: No Current occupational status: employed 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 Current occupational exposures/hazards: No Cognitive needs: No Hearing needs: No Vision needs: No Female Reproductive History Menstrual Age of Menarche: 11 Review of Systems Const All systems reviewed & are unremarkable except as noted in HPI and below Physical Exam Const General: cooperative, healthy appearing, comfortable, no acute distress, well developed, alert and awake Orientation/consciousness: patient oriented x3 Limitations: no limitations HEENT Head: Yes normal to inspection, Yes normocephalic and Yes atraumatic Ears: hearing grossly normal bilaterally Eyes General: appearance normal, both eyes and all related structures Neck Neck: Yes normal visual inspection and Yes trachea midline Chest Chest palpation & inspection: normal inspection of the chest Resp Effort & Inspection: normal respiratory effort and able to speak in complete sentences Cardio Rate: regular rate GI Inspection: Yes normal to inspection General: Yes no CVA tenderness Back/Spine/Pelvis Back: no CVA tenderness Skin General skin exam: no rashes or lesions noted Neuro General: patient oriented x3 Extrem General: Yes normal to inspection Psych Appearance: grossly normal and well kempt Mental Status: mental status grossly normal Speech and movement: Normal speech and movement present and Clear speech present Affect: normal affect Attitude: cooperative Thought process: Normal thought process present Thought content: Normal thought content present Insight: Fair insight present (Psych) Judgement: Fair judgement present (Psych) Results AMB Urinalysis, Automated UA Leukoctes 15 Yonatan/uL Last Edit by JITENDRA Haskins on 01/06/25 12:12 UA Nitrite Last Edit by Michael Hawkins, [facility] on 01/06/25 12:12 UA Urobilinogen 0.2 mg/dL Last Edit by Michael Hawkins, [facility] on 01/06/25 12:1 2 UA Protein 0 mg/dL Last Edit by Michael Rangel, [facility] on 01/06/25 12:12 UA pH 6.0 Last Edit by Michael Rangel, [facility] on 01/06/25 12:12 UA Blood 200 Kevin/uL Last Edit by Michael Rangel, [facility] on 01/06/25 12:12 UA Specific [place] 1.015 Last Edit by Michael Rangel, [facility] on 01/06/25 12: 12 UA Ketone Last Edit by Michael Rangel, [facility] on 01/06/25 12:12 UA Bilirubin 0 mg/dL Last Edit by Michael Rangel, [facility] on 01/06/25 12:12 UA Glucose 0 mg/dL Last Edit by Michael Hawkins, [facility] on 01/06/25 12:12 Results Reviewed Results Reviewed: Laboratory Last Values Urine pH (Auto) 6.0 01/06/25 11:09 Specific [place] (Auto) 1.015 01/06/25 11:09 Urine Protein (Auto) 0 mg/dL 01/06/25 11:09 Glucose (UA)(Auto) 0 mg/dL 01/06/25 11:09 Urine Blood (Auto) 200 Kevin/uL 01/06/25 11:09 Urine Bilirubin (Auto) 0 mg/dL 01/06/25 11:09 Urine Urobilinogen (Auto) 0.2 mg/dL 01/06/25 11:09 Leukocyte Esterase (Auto) 15 Yonatan/uL 01/06/25 11:09 Assessment & Plan Assessment & Plan (1) Microscopic hematuria: Code(s): R31.29 - Other microscopic hematuria Category: Medical Plan In office urinalysis results reviewed with the patient today; as noted above; will send for urine cytology. We discussed potential causes of microscopic hematuria as well as further workup in risks and benefits of these interventions. We discussed further workup versus surveillance monitoring; risks and benefits were discussed All questions were answered She currently denies any bothersome urinary issues. She reports be happy with current voiding parameters. Will obtain retroperitoneal ultrasound for further assessment evaluation. Information provided regarding hematuria and cystoscopy Follow-up next available in office cystoscopy with imaging to be completed prior; or sooner with any issues, concerns, and or questions. Orders: Orders AMB Urinalysis Automated Today Z13.9 - Encounter for screening, unspecified Urine Cytology Today R31.9 - Hematuria, unspecified US retroperitoneal comp Today R31.29 - Other microscopic hematuria Patient Instructions: The patient had an opportunity to ask questions regarding the treatment plan. All questions were answered. Physical exam, labs, and imaging were discussed and reviewed in detail. As well as risks, benefits, and discussion of treatment choices. No major barriers to understanding were identified. The patient expressed understanding and agreement with the above treatment plan. The patient was made aware they should contact our office by phone for worsening of their current condition, the appearance of new symptoms, or with any questions or concerns. Compliance is encouraged with any medications and follow up testing that is ordered. It is a privilege to be allowed the opportunity to participate in? your urological care.? Again, if you have any questions or concerns If you have any questions or concerns please do not hesitate to contact me. The office is [phone]. This note is constructed using voice recognition software. While every effort has been made to ensure accuracy gas golf cart repairer errors may have been included. Yours sincerely, BC Arndt Coding Level of Care Code New Pt Level 3 (57956) Diagnoses Microscopic hematuria R31.29
== END 2025-01-06 11:23 | disposition home or self-care (01) ==
LOC: HO.HUSH 10:55
PROVIDERS: PCP Family Medicine; Visit Provider Nurse Practitioner Family
DX: R31.29 Other microscopic hematuria (principal)
CPT/HCPCS: 99203

== ENCOUNTER 2025-01-06 10:54 | Outpatient (REF) | payer OTHER, SELFPAY | END 2025-01-06 10:55 | disposition home or self-care (01) | LOC: HO.LNP 10:54 | PROVIDERS: PCP Family Medicine; Visit Provider Nurse Practitioner Family | DX: R31.29 Other microscopic hematuria (principal); Z13.9 Encounter for screening, unspecified | CPT/HCPCS: 81003; 88112; 99202 ==

== ENCOUNTER 2025-02-28 09:29 | Outpatient (AMB) | payer OTHER, SELFPAY ==
--- NOTE | 2025-02-28 09:53 | AM.OFFWIN_ITS ---
Intake Vital Signs 02/28/25 09:54 Height 5 ft 5 in Weight 169 lb BMI 28.1 BP 124/80 Blood Pressure Location Lt brachial Position Sitting Pulse 76 Pulse Source Pulse Oximeter Temp 97.7 F Temp Source Oral Pulse Oximetry (%) 97 Oxygen Delivery Method Room Air Intake Visit Reasons: EP pain on RT ribcage Intake Note: pt presents with right rib pain under rt breast Patient Tobacco Use Status: Never used Tobacco Allergies Penicillins Allergy (Verified 02/28/25 09:57) Rash Do you need a note to return to daycare/school/sports/work: No HPI HPI Comments History of Present Illness Details History of Present Illness - The patient is a 49-year-old female pr esenting with right-sided flank/rib pain. - The pain began at the end of December and has persisted for about two months. - The patient reports no associated symp toms such as shortness of breath, cough, or fever. - She has a history of breast cancer and underwent a breast implant revision in April due to a rupture, in [place]. - The pain is reproducible with palpatio n, and there is a ropey sensation in the area extending into her abdomen Physical Exam General: Cooperative, healthy appearing, comfortable, no acute distress and well developed Orientation: Patient oriented x3 Limitations: No limitations Head: Normal to inspection Ears: Hearing grossly normal bilaterally Nose: Normal External nose present Face and sinus: Normal facial exam Eyes: Appearance normal, both eyes and all related structures Neck: Normal visual inspection and Yes full ROM Chest: 5cm palpable superficial vertical raised rope in between the anterior axillary line and midclavicluar line extending from her ribs into RUQ. no er ythema, no edema, no warmth. Respiratory: Normal respiratory effort and able to speak in complete sentences. Skin: No rashes or lesions noted Neuro: Patient oriented x3 Extremities: Normal to inspection PFSH Medical History Laboratory exam ordered as part of routine general medical examination Adult general medical exam Screening for colon cancer Breast cancer screening by mammogram Screening for cervical cancer Well woman exam with routine gynecological exam Encounter for screening examination for sexually transmitted disease Anxiety STD (female) Asthma Surgical History History of right breast implant Hx of breast implants, bilateral H/O tubal ligation History of abdominoplasty Family History Mother High blood pressure High cholesterol Social History Housing: House Patient Tobacco Use Status: Never used Tobacco e-Cigarette/Vaping Use: Never Used Second Hand Smoke Exposure: No service: No Current occupational status: employed 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 Current occupational exposures/hazards: No Cognitive needs: No Hearing needs: No Vision needs: No Female Reproductive History Menstrual Age of Menarche: 11 Review of Systems Const All systems reviewed & are unremarkable except as noted in HPI and below Physical Exam Vital Signs: Last Vital Signs Temp 97.7 F 02/28/25 09:54 Pulse 76 02/28/25 09:54 BP 124/80 02/28/25 09:54 Pulse Ox 97 02/28/25 09:54 Oxygen Delivery Method Room Air 02/28/25 09:54 BMI result Body Mass Index 28.1 Assessment & Plan Assessment & Plan (1) Rib pain on right side: Code(s): R07.81 - Pleurodynia Plan: Patient was informed and verbally consented to the use of an ambient scribe for clinic note documentation during this visit. 1. Right-Sided Pain - A chest x-ray and right-sided rib x-ray were ordered to investigate the cause of the pain. - If the x-rays show no abnormalities, an ultrasound will be requested from her PCP to further evaluate the area. - Question FB left from surgery for breast implant revision due to rupture; surgery performed in [place]. - The area of concern feels like scar tissue, which is unusual given the lack of incision history in that specific location. Orders: Orders XR ribs RT min 3V w CXR1V Today R07.81 - Pleurodynia Coding Level of Care Code Est Pt Level 4 (01675) Diagnoses Rib pain on right side R07.81
[2025-02-28 09:54] VITALS: BP 124/80; PULSE 76; TEMP 36.5; O2SAT 97; BMI 28.1
== END 2025-02-28 10:22 | disposition home or self-care (01) ==
PROVIDERS: PCP Family Medicine; Visit Provider Physician Assistant
DX: R07.81 Pleurodynia (principal)

== ENCOUNTER 2025-02-28 09:29 | Outpatient (REF) | payer OTHER, SELFPAY ==
--- NOTE | ~2025-02-28 | XR_ITS ---
EXAMINATION: XR RIBS, RIGHT CLINICAL INFORMATION: R07.81 - Pleurodynia COMPARISON: None available. TECHNIQUE: PA chest x-ray and 3 views of the right ribs were obtained. FINDINGS: Lungs are clear. No consolidation, pneumothorax, or pleural effusion. The cardiomediastinal silhouette and pulmonary vasculature are normal. Osseous structures are unremarkable. Ribs are intact. No fractures are identified. XR/XR ribs RT min 3V w CXR1V IMPRESSION: Unremarkable examination. Electronically signed by: Edu Frank MD 02/28/2025 10:42 AM EDT
== END 2025-02-28 09:30 | disposition home or self-care (01) ==
LOC: HO.HMGCX 09:29
PROVIDERS: PCP Family Medicine; Visit Provider Physician Assistant
DX: R07.81 Pleurodynia (principal)
CPT/HCPCS: 71101; 99212

== ENCOUNTER → 2025-02-28 10:22 | Outpatient (BNV) | payer OTHER, SELFPAY | PROVIDERS: PCP Family Medicine; Visit Provider Radiology Diagnostic Radiology | DX: R07.89 Other chest pain (principal) | CPT/HCPCS: 71101 ==

== ENCOUNTER 2025-03-12 11:03 | Outpatient (REF) | payer OTHER, SELFPAY ==
--- NOTE | ~2025-03-12 | US_ITS ---
EXAMINATION: US RETROPERITONEUM HISTORY: R31.29 - Other microscopic hematuria TECHNIQUE: Real-time grayscale ultrasound imaging of the kidneys was performed and images were reviewed. COMPARISON: There are no prior studies available for comparison. FINDINGS: Right kidney: The right kidney measures 11.6 x 3.5 x 6.1 cm. Renal parenchymal echotexture and thickness are normal. There are no masses. There is no hydronephrosis or renal calculi. Left Kidney: The left kidney measures 11.3 x 5.5 x 4.4 cm. Renal parenchymal echotexture and thickness are normal. There are no masses. There is no hydronephrosis or renal calculi. The urinary bladder is unremarkable. Bilateral ureteral jets are identified. Before voiding, the urinary bladder measured 13.0 x 8.4 x 10.2 cm, for an estimated volume of 583 mL. After voiding, the urinary bladder measured 4.3 x 3.3 x 6.3 cm, for an estimated volume of 47 mL. US/US retroperitoneal comp IMPRESSION: Unremarkable retroperitoneal ultrasound. Post void bladder residual of 47 mL. Electronically signed by: Grady Stone MD 03/12/2025 11:45 AM EDT
== END 2025-03-12 11:04 | disposition home or self-care (01) ==
LOC: HO.HMGCX 11:03
PROVIDERS: PCP Family Medicine; Visit Provider Nurse Practitioner Family
DX: R31.29 Other microscopic hematuria (principal)
CPT/HCPCS: 76770

== ENCOUNTER → 2025-03-12 11:06 | Outpatient (BNV) | payer OTHER, SELFPAY | PROVIDERS: PCP Family Medicine; Visit Provider Radiology Diagnostic Radiology | DX: R31.29 Other microscopic hematuria (principal) | CPT/HCPCS: 76770 ==

== ENCOUNTER 2025-03-24 10:21 | Outpatient (AMB) | payer OTHER, SELFPAY ==
--- NOTE | 2025-03-24 10:36 | A.OFFVIS_ITS ---
Intake Visit Reasons: Cysto/US Intake Note: Patient presents today for a cystoscopy/US * 03/12 Retroperitoneal US Urology Medications: none Blood Thinner: none Antibiotic Allergy:PCN Flatwork Ironer Required: No Accompanied by: Self / Same As Patient Allergies Penicillins Allergy (Verified 03/24/25 10:36) Rash HPI Comments Details: 03/24/25--the patient is here for office cystoscopy. She was initially evaluated on 01/06/2025 by the nurse practitioner as a new patient for microscopic hematuria. Urine cytology 01/06/25- for malignant cells. Renal ultrasound 03/20/2025 urinary tract kidneys and bladder within normal limits. Cystoscopy findings: WNL, no suspicious bladder lesions visualized. History of Present Illness The patient is a 49-year-old female presenting with microscopic hematuria. She was initially evaluated on January 06, 2025, by a nurse practitioner and is a new patient for this condition. The urine cytology performed on January 06, 2025, was negative for malignant cells, and a renal ultrasound on March 20, 2025, showed normal urinary tract, kidneys, and bladder. The patient reports having blood in the urine for a couple of years, and her mother also has a similar history. The patient experiences occasional urinary incontinence, particularly when holding urine for extended periods or after consuming large amounts of fluids like water or coffee. Caffeine is noted as a bladder irritant, and age-related weakening of pelvic muscles is discussed as a contributing factor. Results - Urine cytology (01/06/25): Negative for malignant cells - Renal ultrasound (03/20/25): Normal urinary tract, kidneys, and bladder Plan 1. Microscopic Hematuria - Cystoscopy today - no suspicious lesions, Renal US- wNL - No follow-up required unless symptoms persist or worsen, as advised by primary care physician. 2. Urinary Urgency - Advised to limit caffeine and not to delay urination to manage symptoms. 01/06/25--Violet is a pleasant 49-year-old female patient of Dr. Otero. She has a past medical history of anxiety, and asthma. She presents to the office today as a new patient for microscopic hematuria. In discussion with the patient today she reports a longstanding history of microscopic hematuria. 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 When asked she denies any previous history of nicotine dependence and or workplace chemical exposure. In office urinalysis results reviewed with the patient today 3+ microscopic hematuria otherwise within normal limits. She otherwise denies any bothersome urinary issues. She denies urinary urgency, urinary frequency, incontinence, nocturia, gross/visible hematuria, dysuria, foul smelling urine, changes to urinary stream, flank pain, fever, and or chills. She is happy with her current voiding parameters. We discussed at length potential causes of microscopic hematuria as well as further workup in risks and benefits of these interventions. We also discussed surveillance monitoring. I discussed reasons for blood in the urine may include but are not limited to kidney stones, cancer in the urinary tract, kidney stone disease or inflammatory conditions of the urinary tract. I have discussed workup to include cystoscopy evaluation. All questions were answered. She otherwise offers no other issues or concerns at this time. [facility] Medical History Rib pain on right side Laboratory exam ordered as part of routine general medical examination Adult general medical exam Screening for colon cancer Breast cancer screening by mammogram Screening for cervical cancer Well woman exam with routine gynecological exam Encounter for screening examination for sexually transmitted disease Anxiety STD (female) Asthma Surgical History History of right breast implant Hx of breast implants, bilateral H/O tubal ligation History of abdominoplasty Family History Mother High blood pressure High cholesterol Social History Housing: House Patient Tobacco Use Status: Never used Tobacco e-Cigarette/Vaping Use: Never Used Second Hand Smoke Exposure: No service: No Current occupational status: employed 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 Current occupational exposures/hazards: No Cognitive needs: No Hearing needs: No Vision needs: No Female Reproductive History Menstrual Age of Menarche: 11 Review of Systems Const All systems reviewed & are unremarkable except as noted in HPI and below Reports no additional complaints Eyes Reports no additional complaints ENT Reports no additional complaints Card Reports no additional complaints Resp Reports no additional complaints GI Reports no additional complaints Reports as per HPI Musc Reports no additional complaints Skin/Breast Reports system reviewed and no additional complaints, except as documented Neuro Reports no additional complaints Psych Reports no additional complaints Endo Reports no additional complaints Steve/Lymph Reports no additional complaints Aller/Immun Reports no additional complaints Office Procedures Cystoscopy Consent Discussed risk and benefit or proposed procedure with the patient. Information consent for procedure given to the patient. Discussed technical aspects, risks, benefits and alternatives in full. Addressed all of the patient's questions and concerns regarding the procedure. The patient demonstrated knowledge and understanding. They wish to proceed with this procedure. Preparation The patient was prepped in the usual manner. A dry roller was present and in the room. Genitalia was prepped with betadine solution in a sterile manner. Lidocaine Jelly 2% was placed into the urethra and 16Fr flexible Olympus cystoscope was inserted into the meatus after adequate lubrication. Procedure Time out per protocol performed. Speculum used as indicated for adequate visualization of urethra, the flexible cystoscope is passed transurethrally: The bladder was inspected in its entirety with utilization retroflexion displaying: Tumor(s): no suspicious bladder lesions visualized Trabeculation: Mild Mucosal Erthema: Orifices: normal shape and position Urethra: normal Cystoscopy findings: WNL, no suspicious bladder lesions visualized [id number] DISPOSABLE SCOPE URO-G FLEXIBLE SCOPE Procedure code (CPT) selection complete Office Meds lidocaine HCl 2 % mucosal jelly in applicator Performing Provider: Sylvia Wells MD Performing Location: [facility] [place] [facility] Administered by: Vern Roca LPN on 03/24/25 10:52 Dose Route Admin Location Dispensed Lot Number Expiration Date ND Tractor Trailer Moving Van Driver 10 mL intra-urethral 20 mL ciprofloxacin HCl 500 mg tablet Performing Provider: Sylvia Wells MD Performing Location: [facility] [place] [facility] Administered by: Vern Roca LPN on 03/24/25 10:52 Dose Route Admin Location Dispensed Lot Number Expiration Date NDC Tractor Tra[employer] Van [employer] 500 mg PO 1 tab phenazopyridine 200 mg tablet Performing Provider: Sylvia Wells MD Performing Location: [facility] [place] [facility] Administered by: Vern Roca LPN on 03/24/25 10:52 Dose Route Admin Location Dispensed Lot Number Expiration Date NDC [employer]ractor [employer] 200 mg PO 1 tab Results Reviewed Results Reviewed: Date of Service: 03/12/25 EXAMINATION: US RETROPERITONEUM HISTORY: R31.29 - Other microscopic hematuria TECHNIQUE: Real-time grayscale ultrasound imaging of the kidneys was performed and images were reviewed. COMPARISON: There are no prior studies available for comparison. FINDINGS: Right kidney: The right kidney measures 11.6 x 3.5 x 6.1 cm. Renal parenchymal echotexture and thickness are normal. There are no masses. There is no hydronephrosis or renal calculi. Left Kidney: The left kidney measures 11.3 x 5.5 x 4.4 cm. Renal parenchymal echotexture and thickness are normal. There are no masses. There is no hydronephrosis or renal calculi. The urinary bladder is unremarkable. Bilateral ureteral jets are identified. Before voiding, the urinary bladder measured 13.0 x 8.4 x 10.2 cm, for an estimated volume of 583 mL. After voiding, the urinary bladder measured 4.3 x 3.3 x 6.3 cm, for an estimated volume of 47 mL. IMPRESSION: Unremarkable retroperitoneal ultrasound. Post void bladder residual of 47 mL. Assessment & Plan Assessment & Plan (1) Microscopic hematuria: Code(s): R31.29 - Other microscopic hematuria Category: Medical Plan Plan 1. Microscopic Hematuria - Cystoscopy today - no suspicious lesions, Renal US- wNL - No follow-up required unless symptoms persist or worsen, as advised by primary care physician. 2. Urinary Urgency - Advised to limit caffeine and not to delay urination to manage symptoms. Orders: Orders AMB Cystoscopy Today R31.29 - Other microscopic hematuria, R31.9 - Hematuria, unspecified Patient Instructions: The patient had an opportunity to ask questions regarding treatment plan. The patient expressed understanding and agreement with the above treatment plan. The patient is aware they should contact our office by phone for worsening of their current condition or the appearance of new symptoms. Compliance is encouraged with any medications and followup testing that is ordered. It is a privilege to be allowed the opportunity to participate in the urologic care of your patient. If you have any questions or concerns regarding treatment for the above conditions please do not hesitate to contact me. The office telephone contact is [phone]. This note is constructed in part using voice recognition software. While every effort has been made to ensure accuracy broach trouble shooter errors may have been included. Yours sincerely, Sylvia Wells MD Scribe Plan - Not visible on output: Patient was informed and verbally consented to the use of an ambient scribe for clinic note documentation during this visit. Coding Level of Care Code Procedure Only Diagnoses Microscopic hematuria R31.29 CPT Codes Cystoscopy - CPT: 23472-[id number] ([id number])
== END 2025-03-24 11:21 | disposition home or self-care (01) ==
LOC: HO.HUSH 10:22
PROVIDERS: PCP Family Medicine; Visit Provider Urology
DX: R31.9 Hematuria, unspecified (principal); R31.29 Other microscopic hematuria
CPT/HCPCS: 52000

== ENCOUNTER → 2025-03-24 10:21 | Outpatient (BNVA) | payer OTHER, SELFPAY | PROVIDERS: PCP Family Medicine; Visit Provider Urology | DX: R31.29 Other microscopic hematuria (principal) | CPT/HCPCS: 52000; 81003 ==

== ENCOUNTER 2025-04-15 11:17 | Outpatient (AMB) | payer OTHER, SELFPAY ==
[2025-04-15 11:21] VITALS: BP 132/80; PULSE 73; TEMP 36.6; O2SAT 100; BMI 28.5
--- NOTE | 2025-04-15 11:21 | AM.OFFWIN_ITS ---
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 - The pain began on Monday or Monday a fter using a skip operator, which may have caused muscle strain. - The patient reports severe pain, inabi lity to lift the arm, and pain on crossing the arm across the chest. - She has no radiation of the pain. - No numbness or tingling is reported, a nd the patient is right-handed. - The patient has been using ibuprofen f or pain management and applying heat to the affected area. - An upcoming colonoscopy is scheduled or Monday. - She denies trauma or falls. - She denies neck pain, elbow pain, wris t pain, or hand pain. - She denies back pain. Physical Exam General: Cooperative, healthy appearing, comfortable, no acute distress and well developed Orientation: Patient oriented x3 Limitations: Limited range of motion in the right arm due to pain Neck: Normal visual inspection and Yes full ROM Respiratory: Normal respiratory effort and able to speak in complete sentences. Clear to auscultation bilaterally Cardiovascular: Regular rate and rhythm. Normal S1 and S2 . No m/r/g noted. Pulses are 2+ on the UE bilaterally. Skin: No rashes or lesions noted Neuro: Sensation is intact. Extremities: Decrease ROM of the right shoulder due to pain. No click noted. No TTP of the clavicle, AC joint, bicipital groove. No TTP of the posterior shoulder or scapula. No TTP of the bicep, tricep, or forearm. Unable to perform the lift off test or apprehension test. Negative can test. Hand real estate legal assistant is intact. Strength is 5/5. Patient was informed and verbally consented to the use of an ambient scribe for clinic note documentation during this visit. [facility] Medical History Rib pain on right side Laboratory exam ordered as part of routine general medical examination Adult general medical exam Screening for colon cancer Breast cancer screening by mammogram Screening for cervical cancer Well woman exam with routine gynecological exam Encounter for screening examination for sexually transmitted disease Anxiety STD (female) Asthma Surgical History History of right breast implant Hx of breast implants, bilateral H/O tubal ligation History of abdominoplasty Family History Mother High blood pressure High cholesterol Social History Housing: House Patient Tobacco Use Status: Never used Tobacco e-Cigarette/Vaping Use: Never Used Second Hand Smoke Exposure: No service: No Current occupational status: employed 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 Current occupational exposures/hazards: No Cognitive needs: No Hearing needs: No Vision needs: No Female Reproductive History Menstrual Age of Menarche: 11 Review of Systems Const All systems reviewed & are unremarkable except as noted in HPI and below Physical Exam Vital Signs: Last Vital Signs Temp 97.9 F 04/15/25 11:21 Pulse 73 04/15/25 11:21 BP 132/80 04/15/25 11:21 Pulse Ox 100 04/15/25 11:21 Oxygen Delivery Method Room Air 04/15/25 11:21 BMI result Body Mass Index 28.5 Results Reviewed Results Reviewed: will review the x-ray in office Assessment & Plan Assessment & Plan (1) Right shoulder strain: Code(s): S46.911A - Strain of unspecified muscle, fascia and tendon at shoulder and upper arm level, right arm, initial encounter Qualifiers: Encounter type: initial encounter Qualified Code(s): S46.911A - Strain of unspecified muscle, fascia and tendon at shoulder and upper arm level, right arm, initial encounter Plan Most likely muscle strain vs arthritis vs tendonitis vs calcific tendonitis plan - Prescribed a muscle relaxant (Flexeril) for pain relief and muscle relaxation. - Recommended use of a sling to support the arm and reduce strain. - Advised to continue using ibuprofen for pain management and to apply heat or ice as needed. - X-ray was ordered due to pt's request - activities as tolerated - can be referred to ortho - if pain continues, needs to f/u with PCP Orders: Orders XR shoulder RT min 2V Today S46.793K - Strain of unspecified muscle, fascia and tendon at shoulder and upper arm level, right arm, initial encounter Medications: New cyclobenzaprine 5 mg PO Q8H PRN 20 tabs 0RF Muscle Spasm naproxen 500 mg PO Q12H PRN 20 tabs 0RF pain 7 days Coding Level of Care Code Est Pt Level 4 (36928) Diagnoses Strain of right shoulder, initial encounter S46.650Q Encounter type: initial encounter
== END 2025-04-15 12:28 | disposition home or self-care (01) ==
PROVIDERS: PCP Family Medicine; Visit Provider Physician Assistant Medical
DX: S46.911A Strain of unspecified muscle, fascia and tendon at shoulder and upper arm level, right arm, initial encounter (principal)

== ENCOUNTER 2025-04-15 11:17 | Outpatient (REF) | payer OTHER, SELFPAY ==
--- NOTE | ~2025-04-15 | XR_ITS ---
EXAMINATION: XR SHOULDER, RIGHT CLINICAL INFORMATION: S46.911A - Strain of unspecified muscle, fascia and tendon at shoulder a... COMPARISON: None available. TECHNIQUE: Three views of the right shoulder. FINDINGS: Normal bone mineralization. No fracture, dislocation, or suspicious bone lesion. Normal alignment. The glenohumeral joint is normal. The AC joint is normal. There is a neutral lateral acromion. No undersurface spurring. The subacromial space is preserved. There is moderate to severe calcification abutting the posterior greater tuberosity in the infraspinatus tendon. Soft tissues otherwise normal. XR/XR shoulder RT min 2V IMPRESSION: 1. No acute bony abnormalities. 2. 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 Electronically signed by: Santos Wright MD 04/15/2025 12:03 PM EDT
== END 2025-04-15 11:18 | disposition home or self-care (01) ==
LOC: HO.HMGCX 11:17
PROVIDERS: PCP Family Medicine; Visit Provider Physician Assistant Medical
DX: S46.911A Strain of unspecified muscle, fascia and tendon at shoulder and upper arm level, right arm, initial encounter (principal); X58.XXXA Exposure to other specified factors, initial encounter
CPT/HCPCS: 73030; 99212

== ENCOUNTER → 2025-04-15 11:42 | Outpatient (BNV) | payer OTHER, SELFPAY | PROVIDERS: PCP Family Medicine; Visit Provider Radiology Diagnostic Radiology | DX: S46.911A Strain of unspecified muscle, fascia and tendon at shoulder and upper arm level, right arm, initial encounter (principal); M75.31 Calcific tendinitis of right shoulder; W19.XXXA Unspecified fall, initial encounter | CPT/HCPCS: 73030 ==

== ENCOUNTER 2025-04-18 12:14 | Day surgery (SDC) | payer OTHER, SELFPAY ==
[2025-04-16 09:18] VITALS: BMI 27.5
--- NOTE | 2025-04-16 09:43 | HO.ANESPROP2 ---
Documented by User: Stefanie Harrington NP 04/16/25 09:44 HPI - Anesthesia Eval Consult details Narrative: 49yo F for Colonoscopy PMFSH Active Problems Active Problems: All Active Problems Microscopic hematuria (Acute) Pre-op examination (Acute) Perimenopause (Acute) Muscle cramps (Acute) Back pain (Acute) Headache (Acute) Hematuria (Acute) Elevated blood pressure reading without diagnosis of hypertension (Acute) Rib pain on right side (Acute) Asthma (Acute) Anxiety (Acute) Past Medical History Medical History Tata-menopause Headache Rib pain on right side Anxiety STD (female) Asthma Family History Family History Mother High blood pressure High cholesterol Surgical History Surgical History Hx of breast implants, bilateral H/O tubal ligation History of abdominoplasty Social History Social History Housing: House Patient Tobacco Use Status: Never used Tobacco e-Cigarette/Vaping Use: Never Used Second Hand Smoke Exposure: No Are you DNR?: No Advance Directives: No Advance Directives Information Provided: Yes Patient : No FDLMP: hx tl service: No Current occupational status: employed 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 Current occupational exposures/hazards: No Cognitive needs: No Hearing needs: No Vision needs: No Meds Allergies Allergy/AdvReac Type Severity Reaction Status Date / Time Penicillins Allergy Rash Verified 04/15/25 11:24 Home Medications ?Medication ?Instructions ?Recorded ?Confirmed ?Last Taken ?Type No Known Home Meds 04/18/25 04/18/25 Unknown History Exam Height,Weight and Vital Signs: Height 5 ft 5 in Weight 74.843 kg Assessment and Plan Assessment Anesthesia Assessment: Chart Reviewed Documented by User: Magalis Zambrano MD 04/18/25 13:05 [facility] Past Medical History Medical History Tata-menopause Headache Rib pain on right side Anxiety STD (female) Asthma Family History Family History Mother High blood pressure High cholesterol Family history of problems with anesthesia: No Surgical History Surgical History Hx of breast implants, bilateral H/O tubal ligation History of abdominoplasty History of Problems with Anesthesia: No Social History Social History Housing: House Patient Tobacco Use Status: Never used Tobacco e-Cigarette/Vaping Use: Never Used Second Hand Smoke Exposure: No Are you DNR?: No Advance Directives: No Advance Directives Information Provided: Yes Patient : No FDLMP: hx tl service: No Current occupational status: employed 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 Current occupational exposures/hazards: No Cognitive needs: No Hearing needs: No Vision needs: No Meds Allergies Allergy/AdvReac Type Severity Reaction Status Date / Time Penicillins Allergy Rash Verified 04/15/25 11:24 Home Medications ?Medication ?Instructions ?Recorded ?Confirmed ?Last Taken ?Type No Known Home Meds 04/18/25 04/18/25 Unknown History Exam Airway Mallampati Class: II TM Dist: >3cm Neck ROM: Full Heart: rrr Lungs: cta Assessment and Plan Assessment Anesthesia Assessment: Anesthesia Plan Discussed Final Anesthetic Review Family History of Problems with Anesthesia: No History of Problems with Anesthesia: No NPO: Yes ASA Class: II Final Preanesthetic Review: No Changes in Pt Med Stat, Meds/Allgs Chart Reviewed, Consent Obtained/Reviewed and Anes Risks/Benef Reviewed Patient Risk: Low Procedure Risk: Low Anesthetic Plan Anesthetic Plan: MAC: Disposition: Standard PACU
--- NOTE | 2025-04-18 12:23 | MHC.SHP ---
Pre-Procedural Eval Section A - 24 Hr Update-Section A only Date of Service: 04/18/25 Section B - Complete if H&P > 30 days Chief Complaint: screening Details of Present Illness: PMX Asthma Elevated blood pressure reading Headache Back pain * SURGICAL HISTORY BREAST IMPLANTS BILATERAL TUBAL LIGATION ABDOMINOPLASTY * ALLERGIES Penicillin * Present Medications: see Short Stay Collaborative assessment Allergies: Allergies Allergy/AdvReac Type Severity Reaction Status Date / Time Penicillins Allergy Rash Verified 04/15/25 11:24 Review of Systems Review of Systems Comment: Ten point ROS negative Exam Exam Comment: Gen appear: No acute distress HEENT: no icterus Chest: No overt resp distress Abd: soft, nontender, nondistended Psych: Stable affect, answering questions appropriately Neuro: A/Ox3 noted to move all extremities spontaneously Ext: no peripheral edema Plan Diagnosis/Plan: Unchanged I have reviewed the history and physical and performed a pertinent physical examination on my patient. No changes have occurred unless specified. Time Spent With Patient Time: Total time managing care of this patient today ____ minutes.
[2025-04-18 12:29] VITALS: BP 144/78; PULSE 78; RESP 18; TEMP 36.9; O2SAT 98; BMI 27.6
[2025-04-18] MEDS: Lactated Ringers 1,000 ML 100 ML IVCONT (12:39)
--- NOTE | 2025-04-18 13:36 | P.OPN-COLO_ITS ---
Colonoscopy Operative Note Operative Note Date of Service: 04/18/25 Narrative: Procedure: Colonoscopy Indication: Screening Endoscopist: Ramona Mcarthur MD Anesthesia Provider: Dony Kay CRNA Anesthesia type: MAC Instrument: Olympus [id number]-[id number] Consent: Indication, risks vs benefits, and alternatives were discussed with the patient who gave written informed consent to proceed. EKG, pulse, pulse oximetry and blood pressure were monitored throughout the procedure. Please see anesthesia flowsheet. Procedure: The patient was brought to the procedure room and placed in the left lateral decubitus position. IV medications were administered by the anesthesia provider in attendance. A digital rectal exam was performed which was abnormal due to finding of hemorrhoids. A distal attachment cap was affixed to the tip of the colonoscope which was then inserted through the anus and advanced through the colon to the cecum at 75 cm,and terminal ileum. Appendiceal orifice and ileocecal valve were identified. Mucosa was carefully examined under high definition white light as the instrument was slowly withdrawn in a retrograde panoramic fashion. Retroflexion was performed in rectum. The procedure was not difficult. There were no immediate obvious complications. The quality of the prep was BBPS: 2+2+2 = adequate Withdrawal time 8 minutes. Limitations: No limitations. Findings: Mucosa: Normal to cecum. Protruding lesions: * Medium internal hemorrhoids without stigmata of recent bleeding. Excavated lesions: * Mild diverticulosis of sigmoid colon. Impression: 1. Normal colon mucosa 2. Diverticulosis 3. External and internal hemorrhoids Recommendations: - Repeat colonoscopy in 5 years due to quality of prep.
[2025-04-18 13:39] VITALS: BP 116/69; PULSE 81; RESP 16; TEMP 36.4; O2SAT 99
[2025-04-18 13:54] VITALS: BP 137/83; PULSE 69; RESP 17; TEMP 37.2; O2SAT 100
== END 2025-04-18 14:28 | disposition home or self-care (01) ==
PROVIDERS: PCP Family Medicine; Visit Provider Internal Medicine
PROC: 0DJD8ZZ Inspection of Lower Intestinal Tract, Via Natural or Artificial Opening Endoscopic (ICD-10-PCS; CPT 45378; principal; 2025-04-18 15:00)
DX: Z12.11 Encounter for screening for malignant neoplasm of colon (principal); K64.8 Other hemorrhoids; K57.30 Diverticulosis of large intestine without perforation or abscess without bleeding; K64.4 Residual hemorrhoidal skin tags
CPT/HCPCS: 45378; J2704

== ENCOUNTER → 2025-04-18 12:14 | Outpatient (BNV) | payer OTHER, SELFPAY | PROVIDERS: PCP Family Medicine; Visit Provider Internal Medicine | DX: Z12.11 Encounter for screening for malignant neoplasm of colon (principal); K57.30 Diverticulosis of large intestine without perforation or abscess without bleeding; K64.8 Other hemorrhoids | CPT/HCPCS: 45378 ==

== ENCOUNTER 2025-04-25 10:21 | Outpatient (REF) | payer OTHER, SELFPAY ==
--- NOTE | ~2025-04-25 | XR_ITS ---
EXAMINATION: XR KNEE, RIGHT CLINICAL INFORMATION: M25.561 - Pain in right knee COMPARISON: None available. TECHNIQUE: 3 views of the right knee. FINDINGS: No fracture or joint effusion. Alignment is anatomic. Joint spaces are maintained. No abnormal soft tissue calcification. XR/XR knee RT 3V IMPRESSION: Normal right knee. Electronically signed by: Danyell German MD 04/25/2025 11:38 AM EDT
== END 2025-04-25 10:22 | disposition home or self-care (01) ==
LOC: HO.HOSX 10:21
PROVIDERS: PCP Family Medicine; Visit Provider Physical Medicine & Rehabilitation
DX: G89.29 Other chronic pain (principal); M54.59 Other low back pain; M25.561 Pain in right knee; M79.18 Myalgia, other site
CPT/HCPCS: 36415; 73562; 82306; 82607; 82746; 83735; 99202

== ENCOUNTER 2025-04-25 10:21 | Outpatient (AMB) | payer OTHER, SELFPAY ==
[2025-04-25 10:23] VITALS: BMI 27.6
--- NOTE | 2025-04-25 10:23 | A.OFFVIS_ITS ---
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 Patient was referred by her PCP - DR. Otero. Patient reports that she reports that she has been having pain in her lower back that is primarily present in the morining. Her pain subsides with movement. She does not taking anything for her pain, and has tried physical therapy with no relief. Denies numbness and tingling in feet. Pain does not radiate. Additionally, she reports right knee pain and limited ROM. She has pain with extension after the knee is bent for long periods of time Allergies Penicillins Allergy (Verified 04/15/25 11:24) Rash HPI Comments Details: Chronic 1 year back pain, usually when she gets up in the morning. While she is up and going, she does not feel it. Has not changed mattress for awhile, has the tempur pedic. But could have pain after taking nap on the sofa. So laying flat usually is the reason for her pain. No numbness. No weakness. No bladder/bowel changes. Lumbar xrays showed facet arthritis. Right calf spasms, not associated with the back pain. Right knee pain, also not associated with the back pain. Arm pain last week, difficulty to lift. No other known PMHx. PCP is Dr. Otero. Finished PT in March. Doing the massage with ball and ice with good relief. Does not want injections if possible. Mother has fibromyalgia. 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 Patient was appropriately conversant and oriented. Good historian. MSK: Inspection reveals appropriate head and neck positioning. No specific abnormalities found on inspection of the spine and all extremities. No pain with palpation over the lumbar area. Mild tenderness over SI joints. Lumbar ROM was full. Bilateral hip, knee and ankle ROM WNL. No ligamentous laxity or crepitance. No increased effusion. Straight-leg raising test negative. Strength is 5/5 in all muscle groups tested. No increased tone noted. Neurological: Mood appears normal, good affect, and appropriate for the circumstances. Neurologic examination of the upper and lower extremities was nonfocal with intact sensation, muscle stretch reflexes and without focal motor deficits. Roberts?s negative bilaterally. Babinski was down going bilaterally. Clonus was negative. Gait is non-antalgic without loss of balance. Vital Signs: BMI result Body Mass Index 27.6 Results Reviewed Results Reviewed: Ordering Physician: Bin Otero MD Date of Service: 12/23/24 Procedure(s): XR lumbar spine 2-3V Accession Number(s): [id number] cc: Bin Otero MD~ EXAMINATION: XR LUMBOSACRAL SPINE CLINICAL INFORMATION: M54.9 - Dorsalgia, unspecified COMPARISON: None available. TECHNIQUE: AP and lateral views. FINDINGS: Levoconvex curvature of the lower lumbar spine. Facet joint hypertrophy at L4-5 and L5-S1. No acute cortical disruption or gross malalignment. No lytic or blastic lesions. XR/XR lumbar spine 2-3V IMPRESSION: Spondylosis L4-5 and L5-S1. Mild levoconvex scoliosis. Electronically signed by: Roc Montana MD 12/23/2024 01:00 PM EDT RP I reviewed records from the following: PCP Assessment & Plan Assessment & Plan (1) Low back pain: Code(s): M54.50 - Low back pain, unspecified Category: Medical Qualifiers: Chronicity: chronic Back pain laterality: bilateral Sciatica presence: without sciatica Qualified Code(s): M54.50 - Low back pain, unspecified; G89.29 - Other chronic pain (2) Lumbar facet joint pain: Code(s): M54.59 - Other low back pain Category: Medical (3) Knee pain, right: Code(s): M25.561 - Pain in right knee Category: Medical Qualifiers: Chronicity: chronic Qualified Code(s): M25.561 - Pain in right knee; G89.29 - Other chronic pain (4) Myofascial pain dysfunction syndrome: Code(s): M79.18 - Myalgia, other site Category: Medical Plan Multiple complaints, lower back pain with facet arthritis seen on x-ray; right calf spasms without calf tenderness or redness today; muscle aches on both arms. We will check for vitamin-D and vitamin B12. Both when low contributes to paresthesias or muscle aches. We will get right knee x-ray. We talked about changing her mattress to something more firm. Assessment and plan discussed with patient, and patient was agreeable. All questions were answered thoroughly. Follow up 1 month or after results. Addis Dorman MD, LEONARDO Board Certified, [place] [employer] and [employer] (ABPMR) Board Certified, [place] [employer] (ABEM) Orders: Orders Magnesium Today M79.18 - Myalgia, other site Vitamin B12 and Folate Today M79.18 - Myalgia, other site Vitamin D 25-OH Total Today M79.18 - Myalgia, other site XR knee RT 3V Today M25.561 - Pain in right knee Coding Level of Care Code New Pt Level 4 (45573) Complex EM visit Add On G2211 Diagnoses Chronic bilateral low back pain without sciatica M54.50; G89.29 Chronicity: chronic Back pain laterality: bilateral Sciatica presence: without sciatica Lumbar facet joint pain M54.59 Chronic pain of right knee M25.561; G89.29 Chronicity: chronic Myofascial pain dysfunction syndrome M79.18
== END 2025-04-25 11:02 | disposition home or self-care (01) ==
LOC: HO.HOS 10:22
PROVIDERS: PCP Family Medicine; Visit Provider Physical Medicine & Rehabilitation
DX: M54.50 Low back pain, unspecified (principal); G89.29 Other chronic pain; M54.59 Other low back pain; M25.561 Pain in right knee; M79.18 Myalgia, other site
CPT/HCPCS: 99203

== ENCOUNTER → 2025-04-25 10:54 | Outpatient (BNV) | payer OTHER, SELFPAY | PROVIDERS: PCP Family Medicine; Visit Provider Radiology Diagnostic Radiology | DX: M25.561 Pain in right knee (principal) | CPT/HCPCS: 73562 ==

== ENCOUNTER 2025-04-25 11:11 | Outpatient (REF) | payer OTHER, SELFPAY ==
[2025-04-25 13:57] LABS: Magnesium 2.0 mg/dL (1.6-2.6)
[2025-04-25 15:14] LABS: Folate 6.6 ng/mL (> or = 4.0); Vitamin B12 452 pg/mL (200-900)
== END 2025-04-25 11:12 | disposition home or self-care (01) ==
LOC: HO.10HDL 11:11
PROVIDERS: Visit Provider Physical Medicine & Rehabilitation
DX: Z13.89 Encounter for screening for other disorder (principal)
CPT/HCPCS: 36415; 82306; 82607; 82746; 83735

== ENCOUNTER 2025-05-23 11:40 | Outpatient (AMB) | payer OTHER, SELFPAY ==
--- NOTE | 2025-05-23 11:42 | MHC.OFFVIS ---
Intake Visit Reasons: OV-Dorsalgia, unspecified Intake Note: Violet is a 49 year old female who presents today as a follow up for her Dorsalgia, unspecified. At today's visit she states that the back pain is feeling better after she changed her mattress at home. Patient noted that she would like to add that the right calf and gates has a dull ache while driving and would like to discuss this at today's visit. Patient would like to discuss the results from her right knee X ray that she had done at last visit. Allergies Penicillins Allergy (Verified 04/15/25 11:24) Rash Medication List - Last Reconciled 05/23/25 by Addis Dorman MD No Known Home Meds HPI Comments Details: Chronic 1 year back pain, usually when she gets up in the morning. While she is up and going, she does not feel it. Has not changed mattress for awhile, has the tempur pedic. But could have pain after taking nap on the sofa. So laying flat usually is the reason for her pain. No numbness. No weakness. No bladder/bowel changes. Lumbar xrays showed facet arthritis. Right calf spasms, not associated with the back pain. Right knee pain, also not associated with the back pain. Arm pain last week, difficulty to lift. No other known PMHx. PCP is Dr. Otero. Finished PT in March. Doing the massage with ball and ice with good relief. Does not want injections if possible. Mother has fibromyalgia. Since last visit, back pain is improved. She bought a firm mattress topper. Vitamin-D, B12 and magnesium all within normal. Right knee x-ray within normal. It does not swell up. When she bends, it hurts to extend it back, down on the patellar tendon. Right calf pain, not swollen or red. 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 MSK: No specific abnormalities found on inspection of the spine and all extremities. Lumbar ROM was full. Bilateral hip, knee and ankle ROM WNL. No ligamentous laxity or crepitant. No increased effusion. No joint line tenderness. No tenderness over patella. Patellar grind test is negative. Anterior drawer test is negative. So test is negative. Posterior drawer test is negative. Valgus and varus stress tests are negative. Josh test is negative. Strength is 5/5 in all muscle groups tested. No increased tone noted. Neurological: Babinski was down going bilaterally. Clonus was negative. Gait is non-antalgic without loss of balance. Results Reviewed Results Reviewed: Ordering Physician: Addis Geronimo Date of Service: 04/25/25 Procedure(s): XR knee RT 3V Accession Number(s): [id number] cc: Bin Otero MD; Addis Geronimo~ Reason for Exam: M25.561 - Pain in right knee EXAMINATION: XR KNEE, RIGHT CLINICAL INFORMATION: M25.561 - Pain in right knee COMPARISON: None available. TECHNIQUE: 3 views of the right knee. FINDINGS: No fracture or joint effusion. Alignment is anatomic. Joint spaces are maintained. No abnormal soft tissue calcification. XR/XR knee RT 3V IMPRESSION: Normal right knee. Electronically signed by: Danyell German MD 04/25/2025 11:38 AM EDT Ordering Physician: Bin Otero MD Date of Service: 12/23/24 Procedure(s): XR lumbar spine 2-3V Accession Number(s): [id number] cc: Bin Otero MD~ EXAMINATION: XR LUMBOSACRAL SPINE CLINICAL INFORMATION: M54.9 - Dorsalgia, unspecified COMPARISON: None available. TECHNIQUE: AP and lateral views. FINDINGS: Levoconvex curvature of the lower lumbar spine. Facet joint hypertrophy at L4-5 and L5-S1. No acute cortical disruption or gross malalignment. No lytic or blastic lesions. XR/XR lumbar spine 2-3V IMPRESSION: Spondylosis L4-5 and L5-S1. Mild levoconvex scoliosis. Electronically signed by: Roc Montana MD 12/23/2024 01:00 PM EDT RP I reviewed records from the following: PCP Assessment & Plan Assessment & Plan (1) Patellofemoral syndrome, right: Code(s): M22.2X1 - Patellofemoral disorders, right knee Category: Medical Plan Suspect patellofemoral syndrome. No arthritic change in x-ray. Can try patellar sleeve. Offered physical therapy but patient defers at this time. Assessment and plan discussed with patient, and patient was agreeable. All questions were answered thoroughly. Follow up 4 months. Addis Dorman MD, LEONARDO Board Certified, [place] [employer] and [employer] (ABPMR) Board Certified, [place] [employer] Electro[employer]ostic [employer] (ABEM) Coding Level of Care Code Est Pt Level 3 (21173) Diagnoses Patellofemoral syndrome, right M22.2X1
== END 2025-05-23 12:17 | disposition home or self-care (01) ==
LOC: HO.HOS 11:41
PROVIDERS: PCP Family Medicine; Visit Provider Physical Medicine & Rehabilitation
DX: M22.2X1 Patellofemoral disorders, right knee (principal)
CPT/HCPCS: 99213

== ENCOUNTER → 2025-05-23 11:40 | Outpatient (BNVA) | payer OTHER, SELFPAY | PROVIDERS: PCP Family Medicine; Visit Provider Physical Medicine & Rehabilitation | DX: M25.561 Pain in right knee (principal); M22.2X1 Patellofemoral disorders, right knee | CPT/HCPCS: 99212 ==